=== PATIENT | female | born 1940 | race Caucasian/White ===

== ENCOUNTER 2016-11-21 15:36 | Emergency (ER) | payer MEDICARE, OTHER ==
[2016-11-21 15:51] VITALS: O2SAT 97
--- NOTE | 2016-11-21 16:48 | ERPHSYRPT ---
- History of Present Illness Time Seen by Provider: 11/21/16 15:50 Source: patient Exam Limitations: clinical condition Patient Subjective Stated Complaint: fall Triage Nursing Assessment: fell yesterday and landed on lt wrist. significant swelling to lt wrist. good sensation. radial pulse present. no other injury. Physician History: PATIENT FELL YESTERDAY SUSTAINED LEFT WRIST INJURY, HAS PAIN WITH SWELLING. DENIES ASSOCIATED HEAD, NECK AND BACK INJURY. Occurred: yesterday Method of Injury: fell Quality: constant Severity of Pain-Max: mild Severity of Pain-Current: mild Extremities Pain Location: wrist: left Modifying Factors: Improves With: movement Associated Symptoms: none Allergies/Adverse Reactions: nalidixic acid [From NegGram] Allergy (Verified 11/21/16 15:51) nitrofurantoin macrocrystalline [From Macrodantin] Allergy (Verified 11/21/16 15 :51) oxytetracycline [From Terramycin] Allergy (Verified 11/21/16 15:51) oxytetracycline HCl [From Terramycin] Allergy (Verified 11/21/16 15:51) codeine [Codeine] Adverse Reaction (Mild, Verified 11/21/16 15:51) Pt states it makes her "climb the dasilva" Home Medications: Furosemide 40 mg [Lasix 40 MG] 20 mg PO DAILY 08/11/12 [History] Acetaminophen [Tylenol Extra Strength] 2 tab PO Q4-6HPRN PRN 01/05/13 [History] [place]-3 Acid Ethyl Esters [Lovaza] 2 cap PO BID 01/05/13 [History] Bupropion HCl Xl 150 mg [Wellbutrin XL 150 MG] 300 mg PO DAILY 01/08/13 [ History] Digoxin 0.125 mg Tablet [Lanoxin 0.125MG TABLET] 0.125 mg PO UD 01/08/13 [ History] Gabapentin 300 mg [Neurontin 300 mg] 300 mg PO BID 01/08/13 [History] Levothyroxine Sodium 125 Mcg [Synthroid 125 Mcg] 88 mcg PO DAILY 01/08/13 [ History] Lorazepam 1 mg [Ativan 1 MG] 1 mg PO HS 01/08/13 [History] Calcium Carbonate/Vitamin D3 [Os-John 500-Vit D3 200 Caplet] 1 each PO DAILY [History] Metoprolol Tartrate 25 mg [Lopressor 25MG Tab] 25 mg PO BID 10/01/14 [ History] Potassium Chloride 10 Meq Tab* [Klor Con 10 MEQ] 10 meq PO BID 10/01/14 [ History] Spironolactone [Aldactone] 25 mg PO BID 10/01/14 [History] Warfarin Sodium 5 mg [Coumadin 5 MG] 6 mg PO HS 11/21/16 [History] Hx Tetanus, Diphtheria Vaccination/Date Given: Yes Hx Influenza Vaccination/Date Given: Yes Hx Pneumococcal Vaccination/Date Given: Yes Immunizations Up to Date: Yes - Review of Systems Constitutional: No Fever, No Chills Musculoskeletal: Injury, Joint Pain, Joint Swelling - Past Medical History Pertinent Past Medical History: Yes Neurological History: Stroke ENT History: Cataracts Cardiac History: Arrhythmia, Deep Vein Thrombosis, Hypertension, Other Respiratory History: No Pertinent History Endocrine Medical History: Diabetes Type II, Hypothyroidism Musculoskeletal History: No Pertinent History GI Medical History: No Pertinent History History: No Pertinent History, Renal Disease Psycho-Social History: Anxiety Female Reproductive Disorders: No Pertinent History - Past Surgical History Past Surgical History: Yes Neuro Surgical History: No Pertinent History Cardiac: Pacemaker, Valve Replacement Respiratory: No Pertinent History Gastrointestinal: Appendectomy, Cholecystectomy Genitourinary: No Pertinent History Musculoskeletal: No Pertinent History Female Surgical History: Hysterectomy Other Surgical History: THYROID REMOVED, RIGHT CARPAL TUNNEL. cyst ovary - Social History Smoking Status: Never smoker Exposure to second hand smoke: No Alcohol Use: None Drug Use: none Patient Lives Alone: No Significant Family History: no pertinent family hx - Female History Hx Now: No - Nursing Vital Signs Nursing Vital Signs: Initial Vital Signs Temperature 97.4 F Temperature Source Oral Pulse Rate 74 Respiratory Rate 18 Blood Pressure [Right Arm] 127/60 Pain Intensity 6 - Physical Exam General Appearance: alert Eyes, Ears, Nose, Throat Exam: moist mucous membranes Neck Exam: non-tender, supple Cardiovascular/Respiratory Exam: chest non-tender, normal breath sounds, regular rate/rhythm, no respiratory distress Abdominal Exam: non-tender, No guarding Back Exam: normal inspection, No vertebral tenderness Wrist Exam: limited ROM (GOOD CAPILLARY REFILL ALL DIGITS), pain (MINIMAL SNUFF BOX TENDERNESS, NO CREPITUS), soft tissue tenderness, swelling Neuro/Tendon Exam: normal sensation, normal motor functions Mental Status Exam: alert, oriented x 3, cooperative Skin Exam: normal color, warm, dry SpO2 Interpretation: normal SpO2: 97 Oxygen Delivery: Room Air - Radiology Exams Left Wrist X-ray Interpretation: Interpreted by me (TINY AVULSION FRACTURE LEFT ULNAR STYLOID) Ordered Tests: Active Orders 24 hr Category Date Time Status Sling Application STAT Care 11/21/16 16:38 Active Splint STAT Care 11/21/16 16:38 Active WRIST (MIN 3 VIEWS) Stat Exams 11/21/16 16:05 Taken - Progress Progress Note: 11/21/16 16:46 ORTHOGLASS SPLINT APPLIED TO LEFT WRIST, WITH ARM SLING Counseled pt/family regarding: diagnosis, need for follow-up, rad results - Departure Time of Disposition: 17:00 Departure Disposition: Home Clinical Impression: AVULSION LEFT WRIST ULNAR STYLOID Condition: Stable Critical Care Time: No Additional Instructions: MAINTAIN VELCRO SPLINT WITH ARM SLING. APPLY ICE OVER WRIST SWELLING EVERY 4 HOURS, 30 MINUTES FOR 48 HOURS. [place] 5/325 EVERY 4 HOURS FOR PAIN. FOLLOWUP WITH DR PALENCIA. Prescriptions: Hydrocodone/Acetaminophen [[place] 5-325 Tablet] 1 each PO Q4H PRN PRN #15 tablet PRN Reason: Pain
[2016-11-21 16:57] VITALS: BP 107/54; PULSE 60
[2016-11-21] MEDS ORDERED: NORCO 5/325 MG ONE (16:59)
--- NOTE | 2016-11-21 21:01 | XRAY ---
Indication: Pain and swelling following fall. Comparison: None 3 views of the left wrist demonstrates minimally displaced tiny cortical fracture fragment posteriorly only seen on the lateral view with soft tissue swelling either from the distal radius or proximal carpal row. CT may yield further information. Mild degenerative changes of the first metacarpal multangular articulation and scattered vascular calcifications.
== END 2016-11-21 17:05 | disposition home or self-care (01) ==
LOC: ED 15:36
PROC: 2W3DX1Z Immobilization of Left Lower Arm using Splint (ICD-10-PCS; principal; 2016-11-21)
DX: S63.075A Dislocation of distal end of left ulna, initial encounter (principal); W19.XXXA Unspecified fall, initial encounter; Z79.899 Other long term (current) drug therapy; Z79.01 Long term (current) use of anticoagulants
CPT/HCPCS: 29126 ×2; 99283; 73110; A9270

== ENCOUNTER 2018-01-07 21:34 | Observation (INO) | payer MEDICARE, OTHER ==
[2018-01-07] MEDS ORDERED: Nitrostat 0.4 MG (ED) SL ONE ×4 (21:55→22:48)
[2018-01-07] MEDS ORDERED: Sodium Chloride 0.9% 1000 ML 1,000 ML IV SCH (22:00)
[2018-01-07 22:03] LABS: BASOPHIL % 0.4 % (0.0-0.4); Basophil (Absolute #) 0.03 (0-0.4); Eosinophil (Absolute #) 0.33 (0-0.5); Granulocyte Absolute (ANC) 4.27 (1.4-6.9); Granulocytes % 52.2 % (36.0-66.0); Hematocrit 34.1 % (35-47); Hemoglobin 11.3 gm/dl (12.0-16.0); Lymphocyte (Absolute #) 2.77 (1.0-4.6); Lymphocytes % 33.9 % (24.0-44.0); Mean Cell Volume 91.4 fl (78-100); Mean Corpuscular Hgb Concent. 33.1 g/dl (32-36); Mean Platelet Volume 10.8 fl (6-9.5); Monocyte (Absolute #) 0.78 (0.0-1.3); Monocytes % 9.5 % (0.0-12.0); Platelet Count 224 K/mm3 (150-450); Red Blood Count 3.73 M/mm3 (4.1-5.4); Red Cell Distribution Width 14.5 % (11.5-14.0); White Blood Count 8.2 K/mm3 (4.0-10.5)
--- NOTE | 2018-01-07 22:04 | ERPHSYRPT ---
- History of Present Illness Time Seen by Provider: 01/07/18 21:47 Historian: patient Exam Limitations: clinical condition Patient Subjective Stated Complaint: chest pain on the right side of chest Triage Nursing Assessment: Pt A&O x3, vitals wnl, complains of pain on the right side of chest that came on suddenly while watching television, no edema, muscle strength normal, S1-S2 sounds heard, lungs clear, hx of mitral and atrial valve replacement, pacemaker, doesn't appear to be in any distress Physician History: PATIENT WITH A HISTORY OF CORONARY ARTERY DISEASE, CVA'S X4, ATRIAL FIBRILLATION WITH PACEMAKER INSERTION, COMPLAINS OF ACUTE ONSET OF CHEST PAIN RIGHT SIDED SUBSTERNAL PRESSSURE DISCOMFORT SINCE 7 PM TONIGHT, PAIN SCALE 7/10 , DENIES RADIATON OF PAIN TO BACK, NECK JAW OR ARMS. Timing/Duration: today, hour(s) Activities at Onset: none Quality: pressure Location: substernal Chest Pain Radiation: no radiation Severity of Pain-Max: moderate Severity of Pain-Current: moderate Modifying Factors: Improves With: oxygen Associated Symptoms: dizziness Prior Chest Pain/Cardiac Workup: angina Nitro Today/Relief: no nitro taken today Aspirin Treatment Today: no aspirin today Allergies/Adverse Reactions: nalidixic acid [From NegGram] Allergy (Verified 07/16/17 15:22) nitrofurantoin macrocrystalline [From Macrodantin] Allergy (Verified 07/16/17 15 :22) oxytetracycline [From Terramycin] Allergy (Verified 07/16/17 15:22) oxytetracycline HCl [From Terramycin] Allergy (Verified 01/07/18 21:48) codeine [Codeine] Adverse Reaction (Mild, Verified 07/16/17 15:22) Pt states it makes her "climb the dasilva" Home Medications: Furosemide 40 mg [Lasix 40 MG] 40 mg PO DAILY 08/11/12 [History] [place]-3 Acid Ethyl Esters [Lovaza] 1 cap PO BID 01/05/13 [History] Bupropion HCl Xl 150 mg [Wellbutrin XL 150 MG] 150 mg PO DAILY 01/08/13 [ History] Digoxin 0.125 mg Tablet [Lanoxin 0.125MG TABLET] 0.125 mg PO UD 01/08/13 [ History] Gabapentin 300 mg [Neurontin 300 mg] 400 mg PO BID 01/08/13 [History] Levothyroxine Sodium 125 Mcg [Synthroid 125 Mcg] 88 mcg PO DAILY 01/08/13 [ History] Lorazepam 1 mg [Ativan 1 MG] 0.5 mg PO HS 01/08/13 [History] Metoprolol Tartrate 25 mg [Lopressor 25MG Tab] 25 mg PO BID 10/01/14 [ History] Potassium Chloride 10 Meq Tab* [Klor Con 10 MEQ] 10 meq PO BID 10/01/14 [ History] Spironolactone [Aldactone] 25 mg PO BID 10/01/14 [History] Warfarin Sodium 5 mg [Coumadin 5 MG] 6 mg PO HS 11/21/16 [History] Atorvastatin Calcium 20 mg PO DAILY 01/07/18 [History] Insulin Aspart [Novolog Flexpen] 12 units SQ TID 01/07/18 [History] Insulin Glargine,Hum.rec.anlog [[place] Solostar] 28 units SQ HS 01/07/18 [ History] Lisinopril [Lisinopril] 10 mg PO BID 01/07/18 [History] Polyethylene Glycol 3350 17 gm [Miralax Powder 17GM PACKET] 17 gm PO DAILY [History] Hx Tetanus, Diphtheria Vaccination/Date Given: Yes (unknown) Hx Influenza Vaccination/Date Given: Yes Hx Pneumococcal Vaccination/Date Given: Yes - Review of Systems Constitutional: No Fever, No Chills Eyes: No Symptoms Ears, Nose, & Throat: No Symptoms Respiratory: Dyspnea on Exertion (VACA), No Cough, No Dyspnea Cardiac: Chest Pain, No Edema, No Syncope Abdominal/Gastrointestinal: No Symptoms, No Abdominal Pain, No Nausea, No Vomiting, No Diarrhea Genitourinary Symptoms: No Symptoms, No Dysuria Musculoskeletal: No Back Pain, No Neck Pain Skin: No Rash Neurological: Vertigo, No Dizziness, No Focal Weakness, No Sensory Changes Psychological: No Symptoms Endocrine: No Symptoms All Other Systems: Reviewed and Negative - Past Medical History Pertinent Past Medical History: Yes Neurological History: Stroke ENT History: Cataracts Cardiac History: Arrhythmia, Deep Vein Thrombosis, Hypertension, Other Respiratory History: No Pertinent History Endocrine Medical History: Diabetes Type II, Hypothyroidism Musculoskeletal History: No Pertinent History GI Medical History: No Pertinent History History: No Pertinent History, Renal Disease Psycho-Social History: Anxiety Female Reproductive Disorders: No Pertinent History - Past Surgical History Past Surgical History: Yes Neuro Surgical History: No Pertinent History Cardiac: Pacemaker, Valve Replacement Respiratory: No Pertinent History Gastrointestinal: Appendectomy, Cholecystectomy Genitourinary: No Pertinent History Musculoskeletal: No Pertinent History Female Surgical History: Hysterectomy Other Surgical History: THYROID REMOVED, RIGHT CARPAL TUNNEL. cyst ovary - Social History Smoking Status: Never smoker Exposure to second hand smoke: No Alcohol Use: None Drug Use: none Patient Lives Alone: No Significant Family History: no pertinent family hx - Nursing Vital Signs Nursing Vital Signs: Initial Vital Signs Pulse Rate 63 01/07/18 21:37 Blood Pressure 135/65 01/07/18 21:37 O2 Sat by Pulse Oximetry 99 01/07/18 21:37 Pain Scale Pain Intensity 6 - Physical Exam General Appearance: no apparent distress, alert Eye Exam: PERRL/EOMI, eyes nml inspection Ears, Nose, Throat Exam: normal ENT inspection, moist mucous membranes Neck Exam: normal inspection, non-tender, supple, full range of motion Respiratory Exam: normal breath sounds, lungs clear, No respiratory distress Cardiovascular Exam: regular rate/rhythm, normal heart sounds, murmur Gastrointestinal/Abdomen Exam: soft, normal bowel sounds, No tenderness, No mass Back Exam: normal inspection, No CVA tenderness, No vertebral tenderness Extremity Exam: normal inspection, normal range of motion, pedal edema (TRACE PRETIBAL EDEMA) Neurologic Exam: alert, oriented x 3, cooperative, normal mood/affect, sensation nml, No motor deficits Skin Exam: normal color, warm, dry SpO2 Interpretation: normal SpO2: 99 Oxygen Delivery: Room Air - Course EKG Interpreted by Me: RATE (NORMAL SINUS RHYTHM, VENTRICULAR PACED RHYTHM) - Radiology Exams Chest X-ray Interpretation: Interpreted by me (PACEMAKER LEFT HEMITHORAX, NO EVIDENCE OF INFILTRATES OR CONGESTIVE HEART FAILURE) Ordered Tests: Active Orders 24 hr Category Date Time Status Bedrest with BRP/BSC ROUTINE Activity 01/07/18 23:09 Active Up With Assistance ROUTINE Activity 01/07/18 23:10 Active Accucheck ACHS Care 01/07/18 23:09 Active Call Admit Doctor for Orders ROUTINE Care 01/07/18 23:09 Active Code Status Order ROUTINE Care 01/07/18 23:09 Active EKG-ER Only STAT Care 01/07/18 22:05 Active IV Care Q6H Care 01/07/18 23:09 Active Implement Chest Pain Pathway ROUTINE Care 01/07/18 23:09 Active Oxygen-ED Only NASAL CANNULA 2 lpm Care 01/07/18 21:[address] in Observation ROUTINE Care 01/07/18 23:09 Active Jesus Evans, Apply ROUTINE Care 01/07/18 23:09 Active Telemetry ROUTINE Care 01/07/18 23:09 Active Vital Signs Q4H Care 01/07/18 23:09 Active Weight,Daily 0600 Care 01/07/18 23:09 Active 1800 Calorie ADA Diet 01/07/18 Breakfast Active CHEST 1 VIEW (PORTABLE) Stat Exams 01/07/18 21:55 Taken CBC W DIFF Stat Lab 01/07/18 21:55 Completed CMP Stat Lab 01/07/18 21:55 Completed LIPID PROFILE AM.LAB Lab 01/08/18 04:00 Ordered MAGNESIUM Stat Lab 01/07/18 21:55 Completed NT PRO BNP Stat Lab 01/07/18 21:55 Completed PROTIME WITH INR Stat Lab 01/07/18 21:55 Completed TROPONIN Q3H Lab 01/07/18 21:55 Completed TROPONIN Q3H Lab 01/08/18 01:00 Ordered TROPONIN Q3H Lab 01/08/18 04:00 Ordered TROPONIN Q3H Lab 01/08/18 07:00 Ordered TROPONIN Q3H Lab 01/08/18 10:00 Ordered EKG Q8HX2,QAMX3,PRN RT 01/07/18 23:09 Active Pulse Oximetry Q4H RT 01/07/18 23:09 Active Transfer Order Routine Transfer 01/07/18 Ordered Medication Summary Generic Name Dose Route Start Last Admin Trade Name Freq PRN Reason Stop Dose Admin Acetaminophen 650 mg 01/07/18 23:09 Tylenol 325 Mg PO 02/06/18 23:08 Q4H PRN PRN PAIN AND/OR FEVER Al Hydrox/Mg Hydrox/Simethicone 30 ml 01/07/18 23:09 Maalox Es 30 Ml Unit Dose PO 02/06/18 23:08 Q4H PRN PRN INDIGESTION Aspirin 325 mg 01/08/18 10:00 Ecotrin 325 Mg PO 02/07/18 09:59 DAILY [facility] Bupropion HCl 150 mg 01/08/18 10:00 Wellbutrin Xl 150 Mg PO 02/07/18 09:59 DAILY [facility] Digoxin 0.125 mg 01/08/18 10:00 Lanoxin 0.125mg Tablet PO 02/07/18 09:59 DAILY [facility] Furosemide 40 mg 01/08/18 10:00 Lasix 40 Mg PO 02/07/18 09:59 DAILY [facility] Gabapentin 400 mg 01/08/18 10:00 Neurontin 400 Mg PO 02/07/18 09:59 BID [facility] Sodium Chloride 1,000 mls @ 20 mls/hr 01/07/18 22:00 01/07/18 22:09 Sodium Chloride 0.9% 1000 Ml IV 02/06/18 21:59 20 mls/hr .Q24H [facility]PHEN Administration Sodium Chloride 500 mls @ 20 mls/hr 01/07/18 23:15 Sodium Chloride 0.9% 500 Ml IV 02/06/18 23:14 .Q24H [facility] Levothyroxine Sodium 88 mcg 01/08/18 10:00 Synthroid 88 Mcg PO 02/07/18 09:59 QAM [facility] Lisinopril 10 mg 01/08/18 10:00 Zestril 10 Mg PO 02/07/18 09:59 DAILY [facility] Magnesium Hydroxide 30 - 60 ml 01/07/18 23:09 Milk Of Magnesia 30 Ml PO 02/06/18 23:08 QDP PRN CONSTIPATION Metoprolol Tartrate 25 mg 01/08/18 10:00 Lopressor 25mg Tab PO 02/07/18 09:59 BID [facility] Ondansetron HCl 4 mg 01/07/18 23:09 Zofran 4 Mg/2 Ml Vial IV 02/06/18 23:08 Q4H PRN PRN NAUSEA/VOMITING Senna/Docusate Sodium 2 udtab 01/07/18 23:09 Senokot-S Tablet PO 02/06/18 23:08 BID PRN PRN CONSTIPATION Spironolactone 25 mg 01/08/18 10:00 Aldactone 25 Mg PO 02/07/18 09:59 BID [facility] Warfarin Sodium 5 mg 01/08/18 18:00 Coumadin 5 Mg PO 02/07/18 17:59 DAILY@1800 [facility] Discontinued Medications Generic Name Dose Route Start Last Admin Trade Name Israelq PRN Reason Stop Dose Admin Nitroglycerin 0.4 mg 01/07/18 21:55 01/07/18 22:08 Nitrostat 0.4 Mg (Ed) SL 01/07/18 21:56 0.4 mg STAT ONE Administration Nitroglycerin Confirm 01/07/18 22:06 Nitrostat 0.4 Mg (Ed) Administered 01/07/18 22:07 Dose 0.4 mg SL .STK-MED ONE Nitroglycerin 0.4 mg 01/07/18 22:25 01/07/18 22:47 Nitrostat 0.4 Mg (Ed) SL 01/07/18 22:26 0.4 mg STAT ONE Administration Nitroglycerin 1 gm 01/07/18 22:50 01/07/18 23:10 Nitro-Bid 2% Ud Packets TOP 01/07/18 22:51 1 gm STAT ONE Administration Nitroglycerin Confirm 01/07/18 22:48 Nitrostat 0.4 Mg (Ed) Administered 01/07/18 22:49 Dose 0.4 mg SL .STK-MED ONE Nitroglycerin Confirm 01/07/18 23:06 Nitro-Bid 2% Ud Packets Administered 01/07/18 23:07 Dose 1 gm .ROUTE .STK-MED ONE Lab/Rad Data: Laboratory Result Diagrams 01/07/18 21:55 01/07/18 21:55 Laboratory Results 01/07/18 01/07/18 01/07/18 Range/Units Unknown 21:55 21:55 WBC (4.0-10.5) K/mm3 RBC (4.1-5.4) M/mm3 Hgb (12.0-16.0) gm/dl Hct (35-47) % MCV (78-100) fl MCH (26-32) pg MCHC (32-36) g/dl RDW (11.5-14.0) % Plt Count (150-450) K/mm3 MPV (6-9.5) fl Gran % (36.0-66.0) % Eos # (Auto) (0-0.5) Absolute Lymphs (auto) (1.0-4.6) Absolute Monos (auto) (0.0-1.3) Lymphocytes % (24.0-44.0) % Monocytes % (0.0-12.0) % Eosinophils % (0.00-5.0) % Basophils % (0.0-0.4) % Absolute Granulocytes (1.4-6.9) Basophils # (0-0.4) PT (9.95-12.35) SECONDS INR (0.8-3.0) Sodium (137-145) mmol/L Potassium (3.5-5.1) mmol/L Chloride (98-107) mmol/L Carbon Dioxide (22-30) mmol/L Anion Gap (5-15) MEQ/L BUN (7-17) mg/dL Creatinine (0.52-1.04) mg/dL Estimated GFR ML/MIN Glucose (74-106) mg/dL Calcium (8.4-10.2) mg/dL Magnesium 1.9 (1.6-2.3) mg/dL Total Bilirubin (0.2-1.3) mg/dL AST (14-36) U/L ALT (0-35) U/L Alkaline Phosphatase (38-126) U/L Troponin I < 0.012 (0.000-0.034) ng/mL NT-Pro-B Natriuret Pep (0-1800) pg/mL Serum Total Protein (6.3-8.2) g/dL Albumin (3.5-5.0) g/dL Digoxin 0.9 (0.8-1.9) ng/mL 01/07/18 01/07/18 01/07/18 Range/Units 21:55 21:55 21:55 WBC 8.2 (4.0-10.5) K/mm3 RBC 3.73 L (4.1-5.4) M/mm3 Hgb 11.3 L (12.0-16.0) gm/dl Hct 34.1 L (35-47) % MCV 91.4 (78-100) fl MCH 30.2 (26-32) pg MCHC 33.1 (32-36) g/dl RDW 14.5 H (11.5-14.0) % Plt Count 224 (150-450) K/mm3 MPV 10.8 H (6-9.5) fl Gran % 52.2 (36.0-66.0) % Eos # (Auto) 0.33 (0-0.5) Absolute Lymphs (auto) 2.77 (1.0-4.6) Absolute Monos (auto) 0.78 (0.0-1.3) Lymphocytes % 33.9 (24.0-44.0) % Monocytes % 9.5 (0.0-12.0) % Eosinophils % 4.0 (0.00-5.0) % Basophils % 0.4 (0.0-0.4) % Absolute Granulocytes 4.27 (1.4-6.9) Basophils # 0.03 (0-0.4) PT 41.6 H (9.95-12.35) SECONDS INR 3.69 H (0.8-3.0) Sodium 140 (137-145) mmol/L Potassium 4.7 (3.5-5.1) mmol/L Chloride 105 (98-107) mmol/L Carbon Dioxide 25 (22-30) mmol/L Anion Gap 15.0 (5-15) MEQ/L BUN 35 H (7-17) mg/dL Creatinine 1.68 H (0.52-1.04) mg/dL Estimated GFR 31.3 ML/MIN Glucose 119 H (74-106) mg/dL Calcium 10.2 (8.4-10.2) mg/dL Magnesium (1.6-2.3) mg/dL Total Bilirubin 0.40 (0.2-1.3) mg/dL AST 22 (14-36) U/L ALT 20 (0-35) U/L Alkaline Phosphatase 107 (38-126) U/L Troponin I (0.000-0.034) ng/mL NT-Pro-B Natriuret Pep 1140 (0-1800) pg/mL Serum Total Protein 7.3 (6.3-8.2) g/dL Albumin 4.4 (3.5-5.0) g/dL Digoxin (0.8-1.9) ng/mL - Progress Progress: improved Progress Note: 01/07/18 22:04 ADMINISTERED IV NORMAL SALINE 20ML/HR, NITRO 0.4MG SL X 2 , APPLICATION NITRO PASTE 1" ANTERIOR CHEST WALL 01/07/18 22:48 CHEST PAIN IMPROVED TO A 10/2201/07/18 23:07 Discussed with : Kaushal (DISCUSSED WITH DR Jam ALBRECHT AT 2307 FOR OBSERVATION) - Departure Time of Disposition: 23:30 Departure Disposition: Observation Clinical Impression: ACUTE CHEST PAIN Condition: Stable Critical Care Time: No Referrals: MICHELLE BOWMAN [Primary Care Provider] -
[2018-01-07] MEDS ORDERED: Sodium Chloride 0.9% 1000 ML 1,000 ML ONE (22:06)
[2018-01-07 22:26] LABS: INR 3.69 (0.8-3.0)
[2018-01-07 22:37] LABS: ALBUMIN 4.4 g/dL (3.5-5.0); BILIRUBIN,TOTAL 0.4 mg/dL (0.2-1.3); Calcium 10.2 mg/dL (8.4-10.2); Creatinine 1 1.68 mg/dL (0.52-1.04); Potassium 4.7 mmol/L (3.5-5.1); Total Protein 7.3 g/dL (6.3-8.2)
[2018-01-07 22:43] LABS: Mean Corpuscular Hemoglobin 30.2 pg (26-32)
[2018-01-07] MEDS ORDERED: NITRO-BID 2% UD PACKETS TOP ONE (22:50)
[2018-01-07] MEDS ORDERED: NITRO-BID 2% UD PACKETS ONE (23:06)
[2018-01-07] MEDS ORDERED: TYLENOL 325 MG PO PRN (23:09)
[2018-01-07] MEDS ORDERED: MAALOX ES 30 ML UNIT DOSE PO PRN (23:09)
[2018-01-07] MEDS ORDERED: MILK OF MAGNESIA 30 ML PO PRN (23:09)
[2018-01-07] MEDS ORDERED: Zofran 4 MG/2 ML VIAL IV PRN (23:09)
[2018-01-07] MEDS ORDERED: Senokot-S Tablet PO PRN (23:09)
[2018-01-07] MEDS ORDERED: Sodium Chloride 0.9% 500 ML 500 ML IV SCH (23:15)
[2018-01-08] MEDS ORDERED: NovoLIN R SQ PRN
[2018-01-08 07:34] VITALS: O2SAT 96
--- NOTE | 2018-01-08 08:29 | PCM.HP ---
History of Present Illness - Chief Complaint Chief Complaint: Acute Chest Pain Date: 01/08/18 History of Present Illness: is a 77 year old female with history of mechanical valve replacement , dvt, and diabetes and hypertension who was sitting at home and suddenly began having chest pain in substernal area sharp in nature around 7pm last night it did not improve so she presented to the ED where it resolved last night. Sh ewas placed in observation for chest pain rule out. she denies any shortness of breath or palpiations no fever or chills and no heart burn or indigestion. - Review of Systems Constitutional: No Fever, No Chills Eyes: No Symptoms Ears, Nose, & Throat: No Symptoms Respiratory: No Cough, No Short Of Breath Cardiac: Chest Pain, No Edema, No Syncope Abdominal/Gastrointestinal: No Abdominal Pain, No Nausea, No Vomiting, No Diarrhea Genitourinary Symptoms: No Dysuria Musculoskeletal: No Back Pain, No Neck Pain Skin: No Rash Neurological: No Dizziness, No Focal Weakness, No Sensory Changes Psychological: No Symptoms Endocrine: No Symptoms Hematologic/Lymphatic: No Symptoms Immunological/Allergic: No Symptoms Medications & Allergies Home Medications: Home Medication List Furosemide 40 mg [Lasix 40 MG] 40 mg PO DAILY 08/11/12 [History Confirmed 01/07/18] [place]-3 Acid Ethyl Esters [Lovaza] 1 cap PO BID 01/05/13 [History Confirmed ] Bupropion HCl Xl 150 mg [Wellbutrin XL 150 MG] 150 mg PO DAILY 01/08/13 [ History Confirmed 01/07/18] Digoxin 0.125 mg Tablet [Lanoxin 0.125MG TABLET] 0.125 mg PO UD 01/08/13 [ History Confirmed 01/08/18] Gabapentin 300 mg [Neurontin 300 mg] 400 mg PO BID 01/08/13 [History Confirmed 01/07/18] Levothyroxine Sodium 125 Mcg [Synthroid 125 Mcg] 88 mcg PO DAILY 01/08/13 [ History Confirmed 01/07/18] Lorazepam 1 mg [Ativan 1 MG] 0.5 mg PO HS 01/08/13 [History Confirmed ] Metoprolol Tartrate 25 mg [Lopressor 25MG Tab] 25 mg PO BID 10/01/14 [ History Confirmed 01/07/18] Potassium Chloride 10 Meq Tab* [Klor Con 10 MEQ] 10 meq PO BID 10/01/14 [ History Confirmed 01/07/18] Spironolactone [Aldactone] 25 mg PO BID 10/01/14 [History Confirmed 01/07/18] Warfarin Sodium 5 mg [Coumadin 5 MG] 6 mg PO HS 11/21/16 [History Confirmed 01/07/18] Atorvastatin Calcium 20 mg PO DAILY 01/07/18 [History Confirmed 01/07/18] Insulin Aspart [Novolog Flexpen] 12 units SQ TIDWM 01/07/18 [History Confirmed 01/08/18] Insulin Glargine,Hum.rec.anlog [Toujeo Solostar] 28 units SQ HS 01/07/18 [ History Confirmed 01/07/18] Lisinopril [Lisinopril] 10 mg PO BID 01/07/18 [History Confirmed 01/07/18] Polyethylene Glycol 3350 17 gm [Miralax Powder 17GM PACKET] 17 gm PO DAILY [History Confirmed 01/07/18] Allergies/Adverse Reactions: Allergies Allergy/AdvReac Type Severity Reaction Status Date / Time nalidixic acid [From NegGram] Allergy Verified 07/16/17 15:22 nitrofurantoin Allergy Verified 07/16/17 15:22 macrocrystalline [From Macrodantin] oxytetracycline Allergy Verified 07/16/17 15:22 [From Terramycin] oxytetracycline HCl Allergy Verified 01/07/18 21:48 [From Terramycin] codeine [Codeine] AdvReac Mild Verified 07/16/17 15:22 - Past Medical History Past Medical History: Yes Neurological History: Stroke ENT History: Cataracts Cardiac History: Arrhythmia, Deep Vein Thrombosis, Hypertension, Other Respiratory History: No Pertinent History Endocrine Medical History: Diabetes Type II, Hypothyroidism Musculoskelatal History: No Pertinent History GI Medical History: No Pertinent History History: No Pertinent History Pyscho-Social History: Anxiety Reproductive Disorders: No Pertinent History - Female History Are you now?: No - Past Surgical History Past Surgical History: Yes Neuro Surgical History: No Pertinent History Cardiac History: Pacemaker, Valve Replacement Respiratory Surgery: No Pertinent History GI Surgical History: Appendectomy, Cholecystectomy Genitourinary Surgical Hx: No Pertinent History Musculskeletal Surgical Hx: No Pertinent History Female Surgical History: Hysterectomy Other Surgical History: THYROID REMOVED, LEFT CARPAL TUNNEL. cyst ovary. Bladder Surgery 1974 - Social History Smoking Status: Never smoker Exposure to second hand smoke: No Alcohol: None Drug Use: none Significant Family History: no pertinent family hx - Physical Exam Vital Signs: Vital Signs - 24 hr Temp Pulse Resp BP Pulse Ox 01/08/18 07:32 97.8 F 60 18 111/58 96 01/08/18 07:23 64 16 98 01/08/18 04:00 97.4 F 60 16 118/57 98 01/08/18 00:03 97.7 F 60 18 109/55 100 01/07/18 23:35 97.7 F 60 18 109/55 100 01/07/18 23:26 99 01/07/18 22:12 60 20 123/60 98 01/07/18 21:37 63 135/65 99 Oxygen-Last 24 hours O2 Percentage 2 Liters = 28% O2 Percentage 2 Liters = 28% Oxygen Flowrate (L/min)-RT 2 General Appearance: no apparent distress, alert Neurologic Exam: alert, oriented x 3, cooperative, normal mood/affect, nml cerebellar function, nml station & gait, sensation nml, No motor deficits Eye Exam: PERRL/EOMI, eyes nml inspection Ears, Nose, Throat Exam: normal ENT inspection, TMs normal, pharynx normal, moist mucous membranes Neck Exam: normal inspection, non-tender, supple, full range of motion Respiratory Exam: normal breath sounds, lungs clear, No respiratory distress Cardiovascular Exam: regular rate/rhythm, normal peripheral pulses, other ( mechanical click) Gastrointestinal/Abdomen Exam: soft, normal bowel sounds, No tenderness, No mass Back Exam: normal inspection, normal range of motion, No CVA tenderness, No vertebral tenderness Extremity Exam: normal inspection, normal range of motion, pelvis stable Skin Exam: normal color, warm, dry, No rash Lymphatic Exam: No adenopathy Results - Labs Lab/Micro Results: Accuchecks Date 01/08/18 Time 07:16 Accucheck Value: 126 Lab Results-Last 24 Hours 01/07/18 01/08/18 01/08/18 Range/Units Unknown 01:30 04:00 Troponin I 0.013 < 0.012 (0.000-0.034) ng/mL Triglycerides (30-150) mg/dL Cholesterol (50-200) mg/dL LDL Cholesterol (30-100) mg/dL HDL Cholesterol (40-60) mg/dL Heart Disease Risk Ratio Digoxin 0.9 (0.8-1.9) ng/mL 01/08/18 01/08/18 Range/Units 04:00 07:05 Troponin I 0.017 (0.000-0.034) ng/mL Triglycerides 223 H (30-150) mg/dL Cholesterol 131 (50-200) mg/dL LDL Cholesterol 60 (30-100) mg/dL HDL Cholesterol 26 L (40-60) mg/dL Heart Disease Risk Ratio 5.0 Digoxin (0.8-1.9) ng/mL Accuchecks Date 01/08/18 Time 07:16 Accucheck Value: 126 - Other Procedures and Tests Respiratory Therapy 01/08/18 05:30 EKG ROUTINE 01/08/18 07:22 Oxygen NASAL CANNULA 2 lpm 01/09/18 05:00 EKG DAILY 01/10/18 05:00 EKG DAILY 01/11/18 05:00 EKG DAILY Assessment/Plan (1) Chest pain, rule out acute myocardial infarction Current Visit: Yes Status: Acute Assessment & Plan: seireal troponin negative and she is chest pain free she will keep f/u with her caridiology Dr. Stewart Code(s): R07.9 - CHEST PAIN, UNSPECIFIED (2) Mechanical heart valve present Current Visit: Yes Status: Acute Assessment & Plan: inr goal 2.5 to 3.5 just a little high today continue outpatient monitoring with Dr. Stewart with f/u inr this week Code(s): Z95.2 - PRESENCE OF PROSTHETIC HEART VALVE (3) Type 2 diabetes mellitus Current Visit: Yes Status: Chronic (4) CKD stage 3 due to type 2 diabetes mellitus Current Visit: Yes Status: Chronic Code(s): E11.22 - TYPE 2 DIABETES MELLITUS W DIABETIC CHRONIC KIDNEY DISEASE; N18.3 - CHRONIC KIDNEY DISEASE, STAGE 3 (MODERATE)
--- NOTE | 2018-01-08 08:31 | PCM.DCORD ---
- Discharge Discharge Date: 01/08/18 Disposition: Home, Self-Care Condition: Stable Prescriptions: Continue Furosemide 40 mg [Lasix 40 MG] 40 mg PO DAILY [place]-3 Acid Ethyl Esters [Lovaza] 1 cap PO BID Lorazepam 1 mg [Ativan 1 MG] 0.5 mg PO HS Levothyroxine Sodium 125 Mcg [Synthroid 125 Mcg] 88 mcg PO DAILY Gabapentin 300 mg [Neurontin 300 mg] 400 mg PO BID Digoxin 0.125 mg Tablet [Lanoxin 0.125MG TABLET] 0.125 mg PO UD Bupropion HCl Xl 150 mg [Wellbutrin XL 150 MG] 150 mg PO DAILY Spironolactone [Aldactone] 25 mg PO BID Potassium Chloride 10 Meq Tab* [Klor Con 10 MEQ] 10 meq PO BID Metoprolol Tartrate 25 mg [Lopressor 25MG Tab] 25 mg PO BID Warfarin Sodium 5 mg [Coumadin 5 MG] 6 mg PO HS Insulin Glargine,Hum.rec.anlog [Toujeo Solostar] 28 units SQ HS Insulin Aspart [Novolog Flexpen] 12 units SQ TIDWM Polyethylene Glycol 3350 17 gm [Miralax Powder 17GM PACKET] 17 gm PO DAILY Atorvastatin Calcium 20 mg PO DAILY Lisinopril 10 mg PO BID Additional Instructions: go for INR this week with Dr. River's office Follow up with: LENNY RIVER [CONSULTING PHYSICIAN] - 1 Week
[2018-01-08] MEDS ORDERED: OMEGA ACID ETHYL ESTERS PO SCH (10:00)
[2018-01-08] MEDS ORDERED: Neurontin 400 MG PO SCH (10:00)
[2018-01-08] MEDS ORDERED: FISH OIL 1,000 MG CAPSULE PO SCH (10:00)
[2018-01-08] MEDS ORDERED: Lasix 40 MG PO SCH (10:00)
[2018-01-08] MEDS ORDERED: NON-FORMULARY ITEM (Atorvastatin Calcium [Atorvastatin Calcium] 20 MG) PO SCH (10:00)
[2018-01-08] MEDS ORDERED: Miralax Powder 17GM PACKET PO SCH (10:00)
[2018-01-08] MEDS ORDERED: Klor Con 10 MEQ PO SCH (10:00)
[2018-01-08] MEDS ORDERED: Aldactone 25 MG PO SCH (10:00)
[2018-01-08] MEDS ORDERED: ZOCOR 20MG PO SCH (10:00)
[2018-01-08] MEDS ORDERED: Wellbutrin XL 150 MG PO SCH (10:00)
[2018-01-08] MEDS ORDERED: Zestril 10 MG PO SCH ×2 (10:00)
[2018-01-08] MEDS ORDERED: SYNTHROID 88 MCG PO SCH (10:00)
[2018-01-08] MEDS ORDERED: Lanoxin 0.125MG TABLET PO SCH (10:00)
[2018-01-08] MEDS ORDERED: Lopressor 25MG Tab PO SCH (10:00)
[2018-01-08] MEDS ORDERED: Ecotrin 325 MG PO SCH (10:00)
--- NOTE | 2018-01-08 10:40 | XRAY ---
Indication: Dyspnea. Comparison: January 05, 2013. Portable chest remains clear. The heart is not enlarged again with previous cardiac valvular replacement surgery and left-sided single lead pacemaker. Vascularity normal. Bony thorax intact again with mild osteopenia and degenerative changes. Impression: Stable nonacute chest with chronic features.
[2018-01-08] MEDS ORDERED: NovoLOG Insulin SQ SCH (12:00)
[2018-01-08] MEDS ORDERED: INSULIN ASPART 12 UNIT SQ SCH (12:00)
[2018-01-08 12:08] VITALS: BP 97/54; PULSE 61
[2018-01-08] MEDS ORDERED: Coumadin 5 MG PO SCH (18:00)
[2018-01-08] MEDS ORDERED: Coumadin 3 MG PO SCH (18:00)
[2018-01-08] MEDS ORDERED: Lantus Insulin SQ SCH (22:00)
[2018-01-08] MEDS ORDERED: Ativan 0.5 MG PO SCH (22:00)
[2018-01-08] MEDS ORDERED: INSULIN GLARGINE HUM REC ANLOG 28 UNIT SQ SCH (22:00)
[2018-01-09] MEDS ORDERED: Lanoxin 0.125MG TABLET PO SCH (10:00)
== END 2018-01-08 13:10 | disposition home or self-care (01) ==
LOC: ED 21:34 → MED SURG 23:34
PROVIDERS: ADMIT Family Medicine; ATTEND Family Medicine
DX: R07.9 Chest pain, unspecified (principal); I25.10 Atherosclerotic heart disease of native coronary artery without angina pectoris; I48.91 Unspecified atrial fibrillation; Z79.01 Long term (current) use of anticoagulants; E11.9 Type 2 diabetes mellitus without complications; Z79.4 Long term (current) use of insulin; E03.9 Hypothyroidism, unspecified; F41.9 Anxiety disorder, unspecified; Z86.73 Personal history of transient ischemic attack (TIA), and cerebral infarction without residual deficits; Z79.899 Other long term (current) drug therapy; Z95.0 Presence of cardiac pacemaker; Z86.718 Personal history of other venous thrombosis and embolism; I25.2 Old myocardial infarction
CPT/HCPCS: 36415; 71045; 80053; 80061; 80162; 83036; 83721; 83735; 83880; 84484; 85025; 85610; 93005; 93268; 94760; 99284; 99285; A9270-GY; G0378

== ENCOUNTER 2019-01-14 15:39 | Emergency (ER) | payer MEDICARE, OTHER ==
[2019-01-14] MEDS ORDERED: Sodium Chloride 0.9% 1000 ML 1,000 ML IV SCH (16:00)
[2019-01-14 16:07] LABS: BASOPHIL % 0.4 % (0.0-0.4); Basophil (Absolute #) 0.03 (0-0.4); Eosinophil % 4.4 % (0.00-5.0); Eosinophil (Absolute #) 0.34 (0-0.5); Granulocyte Absolute (ANC) 4.23 (1.4-6.9); Granulocytes % 54.6 % (36.0-66.0); Hematocrit 32.8 % (35-47); Hemoglobin 10.8 gm/dl (12.0-16.0); Lymphocyte (Absolute #) 2.49 (1.0-4.6); Lymphocytes % 32.2 % (24.0-44.0); Mean Cell Volume 92.9 fl (78-100); Mean Corpuscular Hemoglobin 30.5 pg (26-32); Mean Corpuscular Hgb Concent. 32.9 g/dl (32-36); Mean Platelet Volume 9.9 fl (6-9.5); Monocyte (Absolute #) 0.65 (0.0-1.3); Monocytes % 8.4 % (0.0-12.0); Platelet Count 228 K/mm3 (150-450); Red Blood Count 3.53 M/mm3 (4.1-5.4); Red Cell Distribution Width 14.3 % (11.5-14.0); White Blood Count 7.7 K/mm3 (4.0-10.5)
--- NOTE | 2019-01-14 16:10 | ERPHSYRPT ---
- History of Present Illness Time Seen by Provider: 01/14/19 16:08 Source: patient, family Exam Limitations: no limitations Patient Subjective Stated Complaint: Pt states "I have been weak and not walking right since this morning. I have had three strokes previously." Triage Nursing Assessment: Pt presented in wheelchair through the front doors. Pt unsteady on her feet, clear full sentences. NIH 0. Pt in no apparent respiratory distress. Physician History: Pt states "I have been weak and not walking right since this morning. I have had three strokes previously." Timing/Duration: today Severity: mild Character of Deficits: other Deficits: off balance Allergies/Adverse Reactions: nalidixic acid [From NegGram] Allergy (Verified 07/16/17 15:22) nitrofurantoin macrocrystalline [From Macrodantin] Allergy (Verified 07/16/17 15 :22) oxytetracycline [From Terramycin] Allergy (Verified 07/16/17 15:22) oxytetracycline HCl [From Terramycin] Allergy (Verified 01/07/18 21:48) codeine [Codeine] Adverse Reaction (Mild, Verified 07/16/17 15:22) Pt states it makes her "climb the dasilva" Home Medications: [place]-3 Acid Ethyl Esters [Lovaza] 1 cap PO BID 01/05/13 [History] Bupropion HCl Xl 150 mg [Wellbutrin XL 150 MG] 150 mg PO DAILY 01/08/13 [ History] Digoxin 0.125 mg Tablet [Lanoxin 0.125MG TABLET] 0.125 mg PO UD 01/08/13 [ History] Gabapentin 300 mg [Neurontin 300 mg] 400 mg PO BID 01/08/13 [History] Levothyroxine Sodium 125 Mcg [Synthroid 125 Mcg] 88 mcg PO DAILY 01/08/13 [ History] Lorazepam 1 mg [Ativan 1 MG] 0.5 mg PO HS 01/08/13 [History] Metoprolol Tartrate 25 mg [Lopressor 25MG Tab] 25 mg PO BID 10/01/14 [ History] Potassium Chloride 10 Meq Tab* [Klor Con 10 MEQ] 10 meq PO BID 10/01/14 [ History] Spironolactone [Aldactone] 25 mg PO BID 10/01/14 [History] Warfarin Sodium 5 mg [Coumadin 5 MG] 6 mg PO HS 11/21/16 [History] Atorvastatin Calcium 20 mg PO DAILY 01/07/18 [History] Insulin Aspart [Novolog Flexpen] 12 units SQ TIDWM 01/07/18 [History] Insulin Glargine,Hum.rec.anlog [Toujeo Solostar] 28 units SQ HS 01/07/18 [ History] Lisinopril 10 mg PO BID 01/07/18 [History] Polyethylene Glycol 3350 17 gm [Miralax Powder 17GM PACKET] 17 gm PO DAILY [History] Ciprofloxacin HCl [Cipro] 250 mg PO BID 01/14/19 [History] Hx Tetanus, Diphtheria Vaccination/Date Given: No Hx Influenza Vaccination/Date Given: Yes Hx Pneumococcal Vaccination/Date Given: Yes Immunizations Up to Date: Yes - Review of Systems Constitutional: No Fever, No Chills Eyes: No Symptoms Ears, Nose, & Throat: No Symptoms Respiratory: No Cough, No Dyspnea Cardiac: No Chest Pain, No Edema, No Syncope Abdominal/Gastrointestinal: No Abdominal Pain, No Nausea, No Vomiting, No Diarrhea Genitourinary Symptoms: No Dysuria Musculoskeletal: No Back Pain, No Neck Pain Skin: No Rash Neurological: Gait Changes, No Dizziness, No Focal Weakness, No Sensory Changes Psychological: No Symptoms Endocrine: No Symptoms All Other Systems: Reviewed and Negative - Past Medical History Pertinent Past Medical History: Yes Neurological History: Stroke ENT History: Cataracts Cardiac History: Arrhythmia, Deep Vein Thrombosis, Hypertension, Other Respiratory History: No Pertinent History Endocrine Medical History: Diabetes Type II, Hypothyroidism Musculoskeletal History: No Pertinent History GI Medical History: No Pertinent History History: No Pertinent History Psycho-Social History: Anxiety Female Reproductive Disorders: No Pertinent History - Past Surgical History Past Surgical History: Yes Neuro Surgical History: No Pertinent History Cardiac: Pacemaker, Valve Replacement Respiratory: No Pertinent History Gastrointestinal: Appendectomy, Cholecystectomy Genitourinary: No Pertinent History Musculoskeletal: No Pertinent History Female Surgical History: Hysterectomy Other Surgical History: THYROID REMOVED, LEFT CARPAL TUNNEL. cyst ovary. Bladder Surgery 1974 - Social History Smoking Status: Never smoker Exposure to second hand smoke: No Alcohol Use: None Drug Use: none Patient Lives Alone: No Significant Family History: no pertinent family hx - Nursing Vital Signs Nursing Vital Signs: Initial Vital Signs Temperature 98.6 F 01/14/19 15:50 Pulse Rate 61 01/14/19 15:50 Respiratory Rate 16 01/14/19 15:50 Blood Pressure 105/53 01/14/19 15:50 O2 Sat by Pulse Oximetry 96 01/14/19 15:50 Pain Scale Pain Intensity 0 - Alejandra Coma Scale Best Eye Response (Alejandra): (4) open spontaneously Best Verbal Response (Alejandra): (5) oriented Best Motor Response (Alejandra): (6) obeys commands Alejandra Total: 15 - Physical Exam General Appearance: no apparent distress, alert Eye Exam: bilateral eye: PERRL, EOMI Ears, Nose, Throat Exam: normal ENT inspection, moist mucous membranes Neck Exam: normal inspection, non-tender, supple Respiratory: normal breath sounds, lungs clear, airway intact, No respiratory distress Cardiovascular: regular rate/rhythm, No edema Gastrointestinal: soft, No tenderness, No distention Back Exam: normal inspection Extremity Exam: normal inspection, No pedal edema Mental Status: alert, 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: tongue midline Coordination/Gait: normal finger to nose, normal gait Skin Exam: normal color, warm, dry, No rash SpO2: 96 - Course Nursing assessment & vital signs reviewed: Yes - Radiology Exams Chest X-ray Interpretation: Reviewed by me, Negative - CT Exams Head CT Interpretation: Tele-radiologist Report Ordered Tests: Active Orders 24 hr Category Date Time Status Child Development Instructor STAT Care 01/14/19 15:52 Active EKG-ER Only STAT Care 01/14/19 15:51 Active CHEST 1 VIEW (PORTABLE) Stat Exams 01/14/19 15:52 Taken HEAD WITHOUT CONTRAST [CT] Routine Exams 01/14/19 Ordered CBC W DIFF Stat Lab 01/14/19 16:00 Completed CMP Stat Lab 01/14/19 16:00 Completed TROPONIN Q3H Lab 01/14/19 16:00 Completed TROPONIN Q3H Lab 01/14/19 19:00 Ordered TROPONIN Q3H Lab 01/14/19 22:00 Ordered TROPONIN Q3H Lab 01/15/19 01:00 Ordered TROPONIN Q3H Lab 01/15/19 04:00 Ordered Medication Summary Generic Name Dose Route Start Last Admin Trade Name Freq PRN Reason Stop Dose Admin Sodium Chloride 1,000 mls @ 50 mls/hr 01/14/19 16:00 01/14/19 16:01 Sodium Chloride 0.9% 1000 Ml IV 02/13/19 15:59 50 mls/hr .Q20H STEPHEN Administration Lab/Rad Data: Laboratory Result Diagrams 01/14/19 16:00 01/14/19 16:00 Laboratory Results 01/14/19 01/14/19 01/14/19 Range/Units 16:00 16:00 16:00 WBC 7.7 (4.0-10.5) K/mm3 RBC 3.53 L (4.1-5.4) M/mm3 Hgb 10.8 L (12.0-16.0) gm/dl Hct 32.8 L (35-47) % MCV 92.9 (78-100) fl MCH 30.5 (26-32) pg MCHC 32.9 (32-36) g/dl RDW 14.3 H (11.5-14.0) % Plt Count 228 (150-450) K/mm3 MPV 9.9 H (6-9.5) fl Gran % 54.6 (36.0-66.0) % Eos # (Auto) 0.34 (0-0.5) Absolute Lymphs (auto) 2.49 (1.0-4.6) Absolute Monos (auto) 0.65 (0.0-1.3) Lymphocytes % 32.2 (24.0-44.0) % Monocytes % 8.4 (0.0-12.0) % Eosinophils % 4.4 (0.00-5.0) % Basophils % 0.4 (0.0-0.4) % Absolute Granulocytes 4.23 (1.4-6.9) Basophils # 0.03 (0-0.4) Sodium 142 (137-145) mmol/L Potassium 5.1 (3.5-5.1) mmol/L Chloride 111 H (98-107) mmol/L Carbon Dioxide 20 L (22-30) mmol/L Anion Gap 16.6 H (5-15) MEQ/L BUN 29 H (7-17) mg/dL Creatinine 2.09 H (0.52-1.04) mg/dL Estimated GFR 24.3 ML/MIN Glucose 144 H (74-106) mg/dL Calcium 9.8 (8.4-10.2) mg/dL Total Bilirubin 0.50 (0.2-1.3) mg/dL AST 30 (14-36) U/L ALT 19 (0-35) U/L Alkaline Phosphatase 89 (38-126) U/L Troponin I 0.013 (0.000-0.034) ng/mL Serum Total Protein 7.3 (6.3-8.2) g/dL Albumin 4.3 (3.5-5.0) g/dL - Progress Progress: improved Counseled pt/family regarding: lab results, diagnosis, need for follow-up, rad results - Departure Departure Disposition: Home Clinical Impression: Dizziness and giddiness, Mechanical heart valve present, CKD stage 3 due to type 2 diabetes mellitus Condition: Stable Critical Care Time: Yes Critical Care Time(excluding separately billable procedures): 30-74 minutes Referrals: MICHELLE BOWMAN [Primary Care Provider] - Instructions: Dizziness, Nonvertigo, (DC) Additional Instructions: your dizziness is due to cipro side effects. Please stop cipro. 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 At that time you were treated for an emergent condition, during your visit Laboratory, Radiology and/or other procedures may have been ordered. It is very important that you follow-up with your Primary Care Physician MICHELLE BOWMAN within the next 24- 48 hours to review your Emergency Room visit and the final results of testing that was ordered. Some test results such as Urine Cultures, Blood Cultures, and other cultures if ordered will not be finalized for 24-48 hours. If you do not have a Primary Care Provider please call the medical records department at [phone] ext [phone] to obtain a copy of your results or you may sign into our patient portal to obtain these results by visiting us @ [email or web address] and completing the following steps: 1. Click on the Patient Portal link 2. Click the Patient Self Enrollment Link to complete the enrollment form and entering your 3. Once the enrollment form is completed you will receive an email with a temporary ID and password at the email address you provided. 4. Next choose a user name and password. Your user name must be at least 4 characters long and your password must be at least 4 characters long. 5. Choose a security question from the list and provide your answer to the question. If you already have signed into the Health Portal you may access your Health Care Information 04/04 by the following steps: 1. Login to our website @ [email or web address] 2. Enter your original user name and password. FAQS The [facility] Health Portal is an online tool that contains your Lab Results, Radiology Reports, Visit History, Discharge Instructions and Health Summary Lab and Radiology Results will not be available for 72 hours on the portal. The Portal is a secure site, passwords are encryted and URLs are re-written so they cannot be copied and pasted. You and authorized family members are the only ones who can access your Portal. Also there is a timeout feature that protects your information if you leave the Portal page open. If you have technical difficulty please use the Contact Us link on the page this will allow you to submit any questions you have regarding the Portal or you may contact the Medical Record Department at [phone] ext [phone].
[2019-01-14 16:19] LABS: ALBUMIN 4.3 g/dL (3.5-5.0); ANION GAP 16.6 MEQ/L (5-15); BILIRUBIN,TOTAL 0.5 mg/dL (0.2-1.3); Calcium 9.8 mg/dL (8.4-10.2); Creatinine 1 2.09 mg/dL (0.52-1.04); Potassium 5.1 mmol/L (3.5-5.1); Total Protein 7.3 g/dL (6.3-8.2)
[2019-01-14 17:14] VITALS: BP 102/64; PULSE 60; O2SAT 98
--- NOTE | 2019-01-15 08:36 | XRAY ---
Indication: Dizziness. Comparison: December 30, 2017. Portable chest remains clear. Heart is not enlarged again with cardiac valvular replacement surgery and left-sided pacemaker. Bony thorax intact again with osteopenia and degenerative changes. Impression: Stable nonacute chest with chronic features.
== END 2019-01-14 17:34 | disposition home or self-care (01) ==
LOC: ED 15:39
DX: L03.011 Cellulitis of right finger (principal); S61.212A Laceration without foreign body of right middle finger without damage to nail, initial encounter; Z79.01 Long term (current) use of anticoagulants; Z79.899 Other long term (current) drug therapy; Z86.73 Personal history of transient ischemic attack (TIA), and cerebral infarction without residual deficits
CPT/HCPCS: 36415; 71045; 80053; 84484; 85025; 85610; 93005; 93041; 96360; 99284

== ENCOUNTER 2019-08-24 17:25 | Emergency (ER) | payer MEDICARE, OTHER ==
--- NOTE | 2019-08-24 17:34 | ERPHSYRPT ---
- History of Present Illness Time Seen by Provider: 08/24/19 17:33 Source: patient, family Exam Limitations: no limitations Physician History: 79 y/o asymptomatic white female on coumadin and lovenox for past 2 days. pt had stopped her coumadin approx 2 days prior to a scheduled pacemaker change. per pt, there was a problem with her CMP so the procedure was placed on hold. pt was restarted on her coumadin and once daily lovenox. repeat INR last 2 days low so pt told to come to ED for management. Timing/Duration: today Modifying Factors: Improves With: other (nothing) Associated Symptoms: denies symptoms Allergies/Adverse Reactions: nalidixic acid [From NegGram] Allergy (Verified 08/24/19 18:20) nitrofurantoin macrocrystalline [From Macrodantin] Allergy (Verified 08/24/19 18 :20) oxytetracycline [From Terramycin] Allergy (Verified 08/24/19 18:20) oxytetracycline HCl [From Terramycin] Allergy (Verified 08/24/19 18:20) codeine [Codeine] Adverse Reaction (Mild, Verified 08/24/19 18:20) Pt states it makes her "climb the dasilva" Home Medications: [place]-3 Acid Ethyl Esters [Lovaza] 1 cap PO BID 01/05/13 [History] Bupropion HCl Xl 150 mg [Wellbutrin XL 150 MG] 150 mg PO DAILY 01/08/13 [ History] Digoxin 0.125 mg Tablet [Lanoxin 0.125MG TABLET] 0.125 mg PO UD 01/08/13 [ History] Gabapentin 300 mg [Neurontin 300 mg] 400 mg PO BID 01/08/13 [History] Levothyroxine Sodium 125 Mcg [Synthroid 125 Mcg] 88 mcg PO DAILY 01/08/13 [ History] Lorazepam 1 mg [Ativan 1 MG] 0.5 mg PO HS 01/08/13 [History] Metoprolol Tartrate 25 mg [Lopressor 25MG Tab] 25 mg PO BID 10/01/14 [ History] Potassium Chloride 10 Meq Tab* [Klor Con 10 MEQ] 10 meq PO BID 10/01/14 [ History] Spironolactone [Aldactone] 25 mg PO BID 10/01/14 [History] Warfarin Sodium 5 mg [Coumadin 5 MG] 6 mg PO HS 11/21/16 [History] Atorvastatin Calcium 20 mg PO DAILY 01/07/18 [History] Insulin Aspart [Novolog Flexpen] 4 units SQ TIDWM 01/07/18 [History] Insulin Glargine,Hum.rec.anlog [Toujeo Solostar] 22 units SQ HS 01/07/18 [ History] Lisinopril 10 mg PO BID 01/07/18 [History] Polyethylene Glycol 3350 17 gm [Miralax Powder 17GM PACKET] 17 gm PO DAILY [History] Donepezil HCl 5 mg PO BID 08/24/19 [History] Hx Tetanus, Diphtheria Vaccination/Date Given: No Hx Influenza Vaccination/Date Given: Yes Hx Pneumococcal Vaccination/Date Given: Yes - Review of Systems Constitutional: No Symptoms Eyes: No Symptoms Ears, Nose, & Throat: No Symptoms Respiratory: No Symptoms Cardiac: No Symptoms Abdominal/Gastrointestinal: No Symptoms Genitourinary Symptoms: No Symptoms Musculoskeletal: No Symptoms Skin: No Symptoms Neurological: No Symptoms Psychological: No Symptoms Endocrine: No Symptoms Hematologic/Lymphatic: No Symptoms Immunological/Allergic: No Symptoms All Other Systems: Reviewed and Negative - Past Medical History Pertinent Past Medical History: Yes Neurological History: Stroke ENT History: Cataracts Cardiac History: Arrhythmia, Deep Vein Thrombosis, Hypertension, Other Respiratory History: No Pertinent History Endocrine Medical History: Diabetes Type II, Hypothyroidism Musculoskeletal History: No Pertinent History GI Medical History: No Pertinent History History: No Pertinent History Psycho-Social History: Anxiety Female Reproductive Disorders: No Pertinent History - Past Surgical History Past Surgical History: Yes Neuro Surgical History: No Pertinent History Cardiac: Pacemaker, Valve Replacement Respiratory: No Pertinent History Gastrointestinal: Appendectomy, Cholecystectomy Genitourinary: No Pertinent History Musculoskeletal: No Pertinent History Female Surgical History: Hysterectomy Other Surgical History: THYROID REMOVED, LEFT CARPAL TUNNEL. cyst ovary. Bladder Surgery 1975 - Social History Smoking Status: Never smoker Exposure to second hand smoke: No Alcohol Use: None Drug Use: none Patient Lives Alone: No Significant Family History: no pertinent family hx - Nursing Vital Signs Nursing Vital Signs: Initial Vital Signs Temperature 98.0 F 08/24/19 18:02 Pulse Rate 68 08/24/19 18:02 Blood Pressure 131/60 08/24/19 18:02 O2 Sat by Pulse Oximetry 98 08/24/19 18:02 Pain Scale Pain Intensity 0 - Physical Exam General Appearance: no apparent distress, alert, anxiety Eye Exam: PERRL/EOMI, eyes nml inspection Ears, Nose, Throat Exam: normal ENT inspection, moist mucous membranes Neck Exam: normal inspection, non-tender, supple, full range of motion Respiratory Exam: airway intact, No chest tenderness, No respiratory distress Cardiovascular Exam: regular rate/rhythm, normal heart sounds, normal peripheral pulses Gastrointestinal/Abdomen Exam: No tenderness Pelvic Exam: not done Rectal Exam: not done Extremity Exam: normal inspection, normal range of motion, pelvis stable Neurologic Exam: alert, oriented x 3, cooperative, roguer II-XII nml as tested Skin Exam: normal color, warm, dry Lymphatic Exam: No adenopathy SpO2 Interpretation: normal O2 Delivery: Room Air - Course Nursing assessment & vital signs reviewed: Yes Ordered Tests: Active Orders 24 hr Category Date Time Status PT INR [PROTIME WITH INR] Stat Lab 08/24/19 18:05 Completed Lab/Rad Data: Laboratory Results 08/24/19 Range/Units 18:05 PT 16.6 H (9.95-12.35) SECONDS INR 1.46 (0.8-3.0) - Progress Progress: unchanged Progress Note: 08/24/19 18:[address] Love, aircraft life support fitter covering for Dr. Marshall. i reviewed pts labs , hx and condition with him. Dr. Love states no need to deal with this pt in ED and pt does not require admission. his plan is pt to take her lovenox twice on 08/25/19, once on 08/26/19. additionally, take her daily coumadin as prescribed on tue and tuesday. pt is to have a follow up pt/inr on 08/27/[address] Marshall on 08/27/[address] Other (Dr. Love, aircraft life support fitter covering for Dr. Marshall) Counseled pt/family regarding: lab results, diagnosis, need for follow-up - Departure Departure Disposition: Home Clinical Impression: Laboratory examination, Encounter for medical screening examination Condition: Stable Critical Care Time: No Referrals: MICHELLE BOWMAN [Primary Care Provider] - Additional Instructions: take your lovenox dose tonight, twice tomorrow and once daily thereafter until you discuss with dr. marshall. continue your warfarin/coumadin as prescribed. Call Dr. Marshall's office Tuesday08/27/19 for test results and further management. Follow up at lab here at [facility] on Tuesday for repeat lab draw.
[2019-08-24 18:15] LABS: INR 1.46 (0.8-3.0); PROTIME 16.6 SECONDS (9.95-12.35)
[2019-08-24 19:16] VITALS: BP 115/56; PULSE 65; O2SAT 99
== END 2019-08-24 19:17 | disposition home or self-care (01) ==
LOC: ED 17:25
DX: R79.1 Abnormal coagulation profile (principal); Z79.01 Long term (current) use of anticoagulants
CPT/HCPCS: 36415; 85610; 99283

== ENCOUNTER 2020-02-27 20:35 | Observation (INO) | payer MEDICARE, OTHER ==
--- NOTE | 2020-02-27 21:34 | ERPHSYRPT ---
- History of Present Illness Time Seen by Provider: 02/27/20 21:55 Historian: patient Exam Limitations: no limitations Patient Subjective Stated Complaint: pt states "I can't shit", pt states that she has not been able to have a bowel movement in over a week, pt states "my stool is so hard it hurts to sit", pt states that she vomited this morning Triage Nursing Assessment: pt wheeled into the er, pt is axo 3, pt abdomen is soft, bowels sounds hyperactive in all quads, c/o constipation, c/o 8/10 pain to rectum, lung sounds clear, vital wnl Physician History: Pt states her last BM was 1 week ago & she vomited once this morning without blood. Pt denies chest pain, shortness of air, fever, dysuria. Allergies/Adverse Reactions: nalidixic acid [From NegGram] Allergy (Verified 02/27/20 21:03) nitrofurantoin macrocrystalline [From Macrodantin] Allergy (Verified 02/27/20 21:03) oxytetracycline [From Terramycin] Allergy (Verified 02/27/20 21:03) oxytetracycline HCl [From Terramycin] Allergy (Verified 02/27/20 21:03) codeine [Codeine] Adverse Reaction (Mild, Verified 02/27/20 21:03) Pt states it makes her "climb the dasilva" Home Medications: Bupropion HCl Xl 150 mg [Wellbutrin XL 150 MG] 150 mg PO DAILY 01/08/13 [History] Digoxin 0.125 mg Tablet [Lanoxin 0.125MG TABLET] 0.125 mg PO UD 01/08/13 [History] Gabapentin 300 mg [Neurontin 300 mg] 400 mg PO BID 01/08/13 [History] Levothyroxine Sodium 125 Mcg [Synthroid 125 Mcg] 88 mcg PO DAILY 01/08/13 [History] Lorazepam 1 mg [Ativan 1 MG] 0.5 mg PO HS 01/08/13 [History] Metoprolol Tartrate 25 mg [Lopressor 25MG Tab] 25 mg PO BID 10/01/14 [History] Warfarin Sodium 5 mg [Coumadin 5 MG] 6 mg PO HS 11/21/16 [History] Atorvastatin Calcium 20 mg PO DAILY 01/07/18 [History] Insulin Aspart [Novolog Flexpen] 10 units SQ TIDWM 01/07/18 [History] Insulin Glargine,Hum.rec.anlog [Toujeo Solostar] 22 units SQ HS 01/07/18 [History] Polyethylene Glycol 3350 17 gm [Miralax Powder 17GM PACKET] 17 gm PO DAILY 01/07/18 [History] lisinopriL [Lisinopril] 10 mg PO BID 01/07/18 [History] Donepezil HCl 5 mg PO BID 08/24/19 [History] Hx Tetanus, Diphtheria Vaccination/Date Given: Yes Hx Influenza Vaccination/Date Given: Yes Hx Pneumococcal Vaccination/Date Given: Yes Travel Risk - International Travel Have you traveled outside of the country in past 3 weeks: No - Coronavirus Screening Are you exhibiting any of the following symptoms?: No Close contact with a COVID-19 positive Pt in past 14-21 Days: No - Review of Systems Constitutional: No Fever, No Chills Respiratory: No Cough, No Dyspnea Cardiac: No Chest Pain Abdominal/Gastrointestinal: Vomiting (once today), Constipation (last BM was 1 week ago.) All Other Systems: Reviewed and Negative - Past Medical History Pertinent Past Medical History: Yes Neurological History: Stroke ENT History: Cataracts Cardiac History: Arrhythmia, Deep Vein Thrombosis, Hypertension, Other Respiratory History: No Pertinent History Endocrine Medical History: Diabetes Type II, Hypothyroidism Musculoskeletal History: No Pertinent History GI Medical History: No Pertinent History History: No Pertinent History Psycho-Social History: Anxiety Female Reproductive Disorders: No Pertinent History - Past Surgical History Past Surgical History: Yes Neuro Surgical History: No Pertinent History Cardiac: Pacemaker, Valve Replacement Respiratory: No Pertinent History Gastrointestinal: Appendectomy, Cholecystectomy Genitourinary: No Pertinent History Musculoskeletal: No Pertinent History Female Surgical History: Hysterectomy Other Surgical History: THYROID REMOVED, LEFT CARPAL TUNNEL. cyst ovary. Bladder Surgery 1975 - Social History Smoking Status: Never smoker Exposure to second hand smoke: No Alcohol Use: None Drug Use: none Patient Lives Alone: No Significant Family History: no pertinent family hx - Female History Hx Now: No - Nursing Vital Signs Nursing Vital Signs: Initial Vital Signs Temperature 97.7 F 02/27/20 20:52 Pulse Rate 89 02/27/20 20:52 Respiratory Rate 16 02/27/20 20:52 Blood Pressure 122/66 02/27/20 20:52 O2 Sat by Pulse Oximetry 96 02/27/20 20:52 Pain Scale Pain Intensity 4 - Physical Exam General Appearance: alert Eye Exam: eyes nml inspection Ears, Nose, Throat Exam: pharynx normal, moist mucous membranes Neck Exam: normal inspection Respiratory Exam: lungs clear Cardiovascular Exam: other (prosthetic heart valve sounds.) Gastrointestinal/Abdomen Exam: soft, No normal bowel sounds (b.s. hyperactive and normotonic) Back Exam: normal inspection Extremity Exam: No pedal edema Neurologic Exam: alert, cooperative Skin Exam: warm, dry SpO2 Interpretation: normal SpO2: 96 O2 Delivery: Room Air - Course Nursing assessment & vital signs reviewed: Yes - CT Exams Abdomen/Pelvis CT Interpretation: Tele-radiologist Report (see report) Ordered Tests: Active Orders 24 hr Category Date Time Status IV Insertion STAT Care 02/27/20 23:59 Active ABDOMEN AND PELVIS W/0 CONTRAS [CT] Stat Exams 02/27/20 22:05 Taken AMYLASE Stat Lab 02/27/20 22:42 Completed BLOOD CULTURE Stat Lab 02/28/20 00:00 Ordered CBC W DIFF Stat Lab 02/27/20 22:42 Completed CMP Stat Lab 02/27/20 22:42 Completed CULTURE,URINE Stat Lab 02/27/20 23:45 Received LIPASE Stat Lab 02/27/20 22:42 Completed UA W/RFX UR CULTURE Stat Lab 02/27/20 23:45 Completed Medication Summary Generic Name Dose Route Start Last Admin Trade Name Janene PRN Reason Stop Dose Admin Sodium Chloride 1,000 mls @ 125 mls/hr 02/27/20 23:45 Sodium Chloride 0.9% 1000 Ml IV 03/28/20 23:44 .Q8H STEPHEN Ceftriaxone Sodium/Dextrose 1 g in 50 mls @ 100 mls/hr 02/28/20 00:00 Rocephin 1 Gm-D5w 50 Ml Bag IV 02/28/20 00:29 STAT STA Lab/Rad Data: Laboratory Result Diagrams 02/27/20 22:42 02/27/20 22:42 Laboratory Results 02/27/20 02/27/20 02/27/20 Range/Units 23:45 22:42 22:42 WBC 8.7 (4.0-10.5) K/mm3 RBC 3.65 L (4.1-5.4) M/mm3 Hgb 11.1 L (12.0-16.0) gm/dl Hct 33.7 L (35-47) % MCV 92.3 (78-100) fl MCH 30.4 (26-32) pg MCHC 32.9 (32-36) g/dl RDW 15.0 H (11.5-14.0) % Plt Count 198 (150-450) K/mm3 MPV 10.9 (7.5-11.0) fl Gran % 74.3 H (36.0-66.0) % Eos # (Auto) 0.13 (0-0.5) Absolute Lymphs (auto) 1.54 (1.0-4.6) Absolute Monos (auto) 0.54 (0.0-1.3) Lymphocytes % 17.7 L (24.0-44.0) % Monocytes % 6.2 (0.0-12.0) % Eosinophils % 1.5 (0.00-5.0) % Basophils % 0.3 (0.0-0.4) % Absolute Granulocytes 6.47 (1.4-6.9) Basophils # 0.03 (0-0.4) Sodium 141 (137-145) mmol/L Potassium 4.4 (3.5-5.1) mmol/L Chloride 110 H (98-107) mmol/L Carbon Dioxide 24 (22-30) mmol/L Anion Gap 11.2 (5-15) MEQ/L BUN 35 H (7-17) mg/dL Creatinine 1.61 H (0.52-1.04) mg/dL Estimated GFR 32.7 ML/MIN Glucose 142 H (74-106) mg/dL Calcium 9.3 (8.4-10.2) mg/dL Total Bilirubin 0.60 (0.2-1.3) mg/dL AST 33 (14-36) U/L ALT 32 (0-35) U/L Alkaline Phosphatase 101 (38-126) U/L Serum Total Protein 7.2 (6.3-8.2) g/dL Albumin 4.4 (3.5-5.0) g/dL Amylase 57 (30-110) U/L Lipase 101 (23-300) U/L Urine Color YELLOW (YELLOW) Urine Appearance CLOUDY (CLEAR) Urine pH 7.0 (5-6) Ur Specific [place] 1.011 (1.005-1.025) Urine Protein 30 (Negative) Urine Ketones NEGATIVE (NEGATIVE) Urine Blood NEGATIVE (0-5) Justin/ul Urine Nitrite NEGATIVE (NEGATIVE) Urine Bilirubin NEGATIVE (NEGATIVE) Urine Urobilinogen NEGATIVE (0-1) mg/dL Ur Leukocyte Esterase MODERATE (NEGATIVE) Urine WBC (Auto) >100 (0-5) /HPF Urine RBC (Auto) 11-15 (0-2) /HPF U Epithel Cells (Auto) NONE (FEW) /HPF Urine Bacteria (Auto) MODERATE (NEGATIVE) /HPF Unidentified Crystals 25-50 (NEGATIVE) /HPF Urine Culture Reflexed YES (NO) Urine Glucose NEGATIVE (NEGATIVE) mg/dL - Progress Progress: unchanged Discussed with Dr.: Marquez (obs) Counseled pt/family regarding: lab results, rad results - Departure Departure Disposition: Observation Clinical Impression: Constipation, UTI (urinary tract infection) Condition: Stable Critical Care Time: No Referrals: MICHELLE BOWMAN [Primary Care Provider] -
[2020-02-27 22:45] LABS: Absolute Neutrophil Ct (ANC) 6.47 (1.4-6.9); BASOPHIL % 0.3 % (0.0-0.4); Basophil (Absolute #) 0.03 (0-0.4); Eosinophil % 1.5 % (0.00-5.0); Eosinophil (Absolute #) 0.13 (0-0.5); Hematocrit 33.7 % (35-47); Hemoglobin 11.1 gm/dl (12.0-16.0); Lymphocyte (Absolute #) 1.54 (1.0-4.6); Lymphocytes % 17.7 % (24.0-44.0); Mean Cell Volume 92.3 fl (78-100); Mean Corpuscular Hemoglobin 30.4 pg (26-32); Mean Corpuscular Hgb Concent. 32.9 g/dl (32-36); Mean Platelet Volume 10.9 fl (7.5-11.0); Monocyte (Absolute #) 0.54 (0.0-1.3); Monocytes % 6.2 % (0.0-12.0); Neutrophil % 74.3 % (36.0-66.0); Platelet Count 198 K/mm3 (150-450); Red Blood Count 3.65 M/mm3 (4.1-5.4); White Blood Count 8.7 K/mm3 (4.0-10.5)
[2020-02-27 22:56] LABS: ALBUMIN 4.4 g/dL (3.5-5.0); ANION GAP 11.2 MEQ/L (5-15); BILIRUBIN,TOTAL 0.6 mg/dL (0.2-1.3); Calcium 9.3 mg/dL (8.4-10.2); Creatinine 1 1.61 mg/dL (0.52-1.04); Potassium 4.4 mmol/L (3.5-5.1); Total Protein 7.2 g/dL (6.3-8.2)
[2020-02-27] MEDS ORDERED: Sodium Chloride 0.9% 1000 ML 1,000 ML IV SCH (23:45)
[2020-02-27 23:52] LABS: Appearance CLOUDY (CLEAR); Bacteria MODERATE /HPF (NEGATIVE); Bilirubin NEGATIVE (NEGATIVE); Blood NEGATIVE Ery/ul (0-5); Crystals Unidentified 25-50 /HPF (NEGATIVE); Glucose NEGATIVE (NEGATIVE); Ketones NEGATIVE (NEGATIVE); Leukocyte Esterase MODERATE (NEGATIVE); Nitrite NEGATIVE (NEGATIVE); Protein,Urine Dip 30 (Negative); Specific Gravity 1.011 (1.005-1.025); Urobilinogen NEGATIVE mg/dL (0-1); WBC >100 /HPF (0-5)
[2020-02-28] MEDS ORDERED: ROCEPHIN 1 Gm-D5w 50 ml Bag** 1 G/50 ML IVPB IV STA
[2020-02-28] MEDS ORDERED: Zofran 4 MG/2 ML VIAL IV PRN (00:08)
[2020-02-28 00:41] LABS: INR 3.56 (0.8-3.0); PROTIME 40.7 SECONDS (9.95-12.35)
[2020-02-28 00:44] LABS: PTT 46.8 SECONDS (25.3-37.0)
[2020-02-28] MEDS ORDERED: Coumadin 5 MG PO ONE (03:39)
[2020-02-28 05:11] LABS: Absolute Neutrophil Ct (ANC) 7.91 (1.4-6.9); BASOPHIL % 0.3 % (0.0-0.4); Basophil (Absolute #) 0.03 (0-0.4); Eosinophil % 1.3 % (0.00-5.0); Eosinophil (Absolute #) 0.14 (0-0.5); Hematocrit 31.5 % (35-47); Hemoglobin 10.3 gm/dl (12.0-16.0); Lymphocyte (Absolute #) 1.84 (1.0-4.6); Lymphocytes % 17.1 % (24.0-44.0); Mean Cell Volume 92.4 fl (78-100); Mean Corpuscular Hemoglobin 30.2 pg (26-32); Mean Corpuscular Hgb Concent. 32.7 g/dl (32-36); Mean Platelet Volume 11.1 fl (7.5-11.0); Monocyte (Absolute #) 0.81 (0.0-1.3); Monocytes % 7.5 % (0.0-12.0); Neutrophil % 73.8 % (36.0-66.0); Platelet Count 189 K/mm3 (150-450); Red Blood Count 3.41 M/mm3 (4.1-5.4); Red Cell Distribution Width 14.9 % (11.5-14.0); White Blood Count 10.7 K/mm3 (4.0-10.5)
[2020-02-28 05:34] LABS: ALBUMIN 3.9 g/dL (3.5-5.0); ANION GAP 13.1 MEQ/L (5-15); BILIRUBIN,TOTAL 0.6 mg/dL (0.2-1.3); Creatinine 1 1.46 mg/dL (0.52-1.04); Potassium 4.2 mmol/L (3.5-5.1); Total Protein 6.6 g/dL (6.3-8.2)
--- NOTE | 2020-02-28 08:40 | XRAY ---
Indication: Constipation 1 week left sided head injury. Vomiting. Multiple contiguous axial images obtained through the abdomen and pelvis without contrast as ordered. Comparison: May 03, 2011. Lung bases demonstrates minimal bibasilar fibrosis/scarring without focal infiltrate or effusion. Heart remains enlarged. Stable moderate hiatal hernia with partial intrathoracic stomach. Noncontrasted stomach and bowel loops appear nonobstructed. There is mild diffuse scattered colonic fecal debris throughout including large rectal impaction. Minimal sigmoid diverticulosis. Reported appendectomy, cholecystectomy, and hysterectomy. New subcentimeter bilateral renal cysts. No free fluid/air. Remaining liver, pancreas, spleen, adrenal glands, kidneys, ureters, and bladder appear unremarkable for noncontrast exam. Mild scattered aortoiliac calcifications without AAA. Osseous structures intact with now mild multilevel degenerative spondylosis throughout the thoracolumbar spine including new minimal grade 1 spondylolisthesis of L4 on L5 on S1. Impression: 1. Again fecal stasis with new large rectal impaction. 2. New sigmoid diverticulosis and bilateral renal cysts. 3. Stable hiatal hernia and cardiomegaly. 4. Worsening multilevel degenerative spondylosis with now minimal grade 1 spondylolisthesis L4-S1. Comment: Preliminary interpretation was made by [facility]. No critical discrepancy.
[2020-02-28] MEDS ORDERED: Miralax Powder 17GM PACKET PO SCH (10:00)
[2020-02-28] MEDS ORDERED: SYNTHROID 88 MCG PO SCH (10:00)
[2020-02-28] MEDS ORDERED: Wellbutrin XL 150 MG PO SCH (10:00)
[2020-02-28] MEDS ORDERED: Lopressor 25MG Tab PO SCH (10:30)
[2020-02-28] MEDS ORDERED: Neurontin 400 MG PO SCH (10:30)
[2020-02-28] MEDS ORDERED: Zestril 10 MG PO SCH (10:30)
[2020-02-28] MEDS ORDERED: Aricept 10 MG PO SCH (10:45)
[2020-02-28 11:21] VITALS: BP 110/52; PULSE 63; O2SAT 96
[2020-02-28] MEDS ORDERED: HUMALOG SQ SCH (12:00)
[2020-02-28] MEDS ORDERED: INSULIN ASPART 10 UNIT SQ SCH (12:00)
[2020-02-28] MEDS ORDERED: Rocephin 1000 MG INJ IM ONE (14:23)
[2020-02-28] MEDS ORDERED: XYLOCAINE 1% HCL 20 ML MDV IJ ONE (14:25)
--- NOTE | 2020-02-28 14:30 | PCM.SSS ---
History of Present Illness - Chief Complaint Chief Complaint: Constipation; UTI. History of Present Illness: is a 79 year old female pt of Dr. Quinteros with DM, Alzheimer's dz, cerebrovascular dz, and recurrent UTIs who was admitted through ER with fecal impaction and UTI. Had been vomiting and had been 1 week since her last BM. She used to take miralax regularly but she stopped because she was having diarrhea. Apparently the amount of stool was so large on CT that it was compre ssing the bladder and she had a UTI. She was started on IV rocephin. Overnight she had a very large amount of stool out, and is feeling great this morning and would like to go home. She's had 1 dose of IV rocephin; her IV went bad, so she will get her second dose IM today then discharge to home to finish 5 more days of cefdinir. F/u in 1 wk. - Review of Systems Respiratory: Cough (chronic, with phlegm) Cardiac: Edema (chronic, LE bilat) Abdominal/Gastrointestinal: Nausea, Vomiting, Constipation, Hematochezia (bright red blood in the stool last week; none recently), No Abdominal Pain, No Melena Medications & Allergies Home Medications: Home Medication List Bupropion HCl Xl 150 mg [Wellbutrin XL 150 MG] 150 mg PO DAILY 01/08/13 [History Confirmed 02/28/20] Digoxin 0.125 mg Tablet [Lanoxin 0.125MG TABLET] 0.125 mg PO UD 01/08/13 [History Confirmed 02/28/20] Gabapentin 300 mg [Neurontin 300 mg] 400 mg PO BID 01/08/13 [History Confirmed 02/28/20] Levothyroxine Sodium 125 Mcg [Synthroid 125 Mcg] 88 mcg PO DAILY 01/08/13 [History Confirmed 02/28/20] Lorazepam 1 mg [Ativan 1 MG] 0.5 mg PO HS 01/08/13 [History Confirmed 02/10 05/01] Metoprolol Tartrate 25 mg [Lopressor 25MG Tab] 25 mg PO BID 10/01/14 [History Confirmed 02/28/20] Warfarin Sodium 5 mg [Coumadin 5 MG] 6 mg PO HS 11/21/16 [History Confirmed 02/28/20] Atorvastatin Calcium 20 mg PO DAILY 01/07/18 [History Confirmed 02/28/20] Insulin Aspart [Novolog Flexpen] 10 units SQ TIDWM 01/07/18 [History Confirmed 02/28/20] Insulin Glargine,Hum.rec.anlog [Toujeo Solostar] 16 units SQ HS 01/07/18 [History Confirmed 02/28/20] Polyethylene Glycol 3350 17 gm [Miralax Powder 17GM PACKET] 17 gm PO DAILY 01/07/18 [History Confirmed 02/27/20] lisinopriL [Lisinopril] 10 mg PO BID 01/07/18 [History Confirmed 02/28/20] Donepezil HCl 5 mg PO BID 08/24/19 [History Confirmed 02/28/20] Cefdinir 300 mg PO BID #10 capsule 02/28/20 [Rx] Allergies/Adverse Reactions: Allergies Allergy/AdvReac Type Severity Reaction Status Date / Time nalidixic acid [From NegGram] Allergy Severe Hives Verified 02/28/20 01:16 nitrofurantoin Allergy Severe Hives Verified 02/28/20 01:16 macrocrystalline [From Macrodantin] oxytetracycline HCl Allergy Severe Nausea and Verified 02/28/20 01:16 [From Terramycin] Vomiting oxytetracycline Allergy makes pt Verified 02/28/20 01:16 [From Terramycin] go crazy codeine [Codeine] AdvReac Intermediate Verified 02/28/20 01:16 - Past Medical History Past Medical History: Yes Neurological History: Stroke ENT History: Cataracts Cardiac History: Arrhythmia, Deep Vein Thrombosis, Hypertension, Other Respiratory History: No Pertinent History Endocrine Medical History: Diabetes Type II, Hypothyroidism Musculoskelatal History: Arthritis GI Medical History: No Pertinent History History: No Pertinent History Pyscho-Social History: Anxiety Reproductive Disorders: No Pertinent History - Female History Are you now?: No - Past Surgical History Past Surgical History: Yes Neuro Surgical History: No Pertinent History Cardiac History: Pacemaker, Valve Replacement Respiratory Surgery: No Pertinent History GI Surgical History: Appendectomy, Cholecystectomy Genitourinary Surgical Hx: No Pertinent History Musculskeletal Surgical Hx: No Pertinent History Female Surgical History: Hysterectomy Other Surgical History: THYROID REMOVED, LEFT CARPAL TUNNEL. cyst ovary. Bladder Surgery 1974 - Social History Smoking Status: Never smoker Exposure to second hand smoke: No Alcohol: None Drug Use: none Significant Family History: no pertinent family hx - Physical Exam Vital Signs: Vital Signs - 24 hr Temp Pulse Resp BP Pulse Ox 02/28/20 11:21 98 F 63 18 110/52 96 02/28/20 07:10 98.1 F 68 20 108/53 94 L 02/28/20 02:30 98.6 F 65 16 127/60 97 02/28/20 00:06 96 02/27/20 23:49 69 126/69 96 02/27/20 20:52 97.7 F 89 16 122/66 96 General Appearance: no apparent distress, alert Neurologic Exam: oriented x 3, cooperative, other (eating breakfast) Eye Exam: eyes nml inspection Ears, Nose, Throat Exam: moist mucous membranes Respiratory Exam: normal breath sounds, lungs clear, No crackles/rales, No rhonchi, No wheezing Cardiovascular Exam: regular rate/rhythm, normal heart sounds, No murmur Results - Labs Lab/Micro Results: Accuchecks Date 02/28/20 Time 02:30 Accucheck Value: 185 Accucheck Value: 145 Accucheck Value: 135 Lab Results-Last 24 Hours 02/27/20 02/27/20 02/27/20 Range/Units 22:42 22:42 23:45 WBC 8.7 (4.0-10.5) K/mm3 RBC 3.65 L (4.1-5.4) M/mm3 Hgb 11.1 L (12.0-16.0) gm/dl Hct 33.7 L (35-47) % MCV 92.3 (78-100) fl MCH 30.4 (26-32) pg MCHC 32.9 (32-36) g/dl RDW 15.0 H (11.5-14.0) % Plt Count 198 (150-450) K/mm3 MPV 10.9 (7.5-11.0) fl Gran % 74.3 H (36.0-66.0) % Eos # (Auto) 0.13 (0-0.5) Absolute Lymphs (auto) 1.54 (1.0-4.6) Absolute Monos (auto) 0.54 (0.0-1.3) Lymphocytes % 17.7 L (24.0-44.0) % Monocytes % 6.2 (0.0-12.0) % Eosinophils % 1.5 (0.00-5.0) % Basophils % 0.3 (0.0-0.4) % Absolute Granulocytes 6.47 (1.4-6.9) Basophils # 0.03 (0-0.4) PT (9.95-12.35) SECONDS INR (0.8-3.0) APTT (25.3-37.0) SECONDS Sodium 141 (137-145) mmol/L Potassium 4.4 (3.5-5.1) mmol/L Chloride 110 H (98-107) mmol/L Carbon Dioxide 24 (22-30) mmol/L Anion Gap 11.2 (5-15) MEQ/L BUN 35 H (7-17) mg/dL Creatinine 1.61 H (0.52-1.04) mg/dL Estimated GFR 32.7 ML/MIN Glucose 142 H (74-106) mg/dL Calcium 9.3 (8.4-10.2) mg/dL Total Bilirubin 0.60 (0.2-1.3) mg/dL AST 33 (14-36) U/L ALT 32 (0-35) U/L Alkaline Phosphatase 101 (38-126) U/L Serum Total Protein 7.2 (6.3-8.2) g/dL Albumin 4.4 (3.5-5.0) g/dL Amylase 57 (30-110) U/L Lipase 101 (23-300) U/L Urine Color YELLOW (YELLOW) Urine Appearance CLOUDY (CLEAR) Urine pH 7.0 (5-6) Ur Specific [place] 1.011 (1.005-1.025) Urine Protein 30 (Negative) Urine Ketones NEGATIVE (NEGATIVE) Urine Blood NEGATIVE (0-5) Justin/ul Urine Nitrite NEGATIVE (NEGATIVE) Urine Bilirubin NEGATIVE (NEGATIVE) Urine Urobilinogen NEGATIVE (0-1) mg/dL Ur Leukocyte Esterase MODERATE (NEGATIVE) Urine WBC (Auto) >100 (0-5) /HPF Urine RBC (Auto) 11-15 (0-2) /HPF U Epithel Cells (Auto) NONE (FEW) /HPF Urine Bacteria (Auto) MODERATE (NEGATIVE) /HPF Unidentified Crystals 25-50 (NEGATIVE) /HPF Urine Culture Reflexed YES (NO) Urine Glucose NEGATIVE (NEGATIVE) mg/dL 02/28/20 02/28/20 02/28/20 Range/Units 00:37 04:52 04:52 WBC 10.7 H (4.0-10.5) K/mm3 RBC 3.41 L (4.1-5.4) M/mm3 Hgb 10.3 L (12.0-16.0) gm/dl Hct 31.5 L (35-47) % MCV 92.4 (78-100) fl MCH 30.2 (26-32) pg MCHC 32.7 (32-36) g/dl RDW 14.9 H (11.5-14.0) % Plt Count 189 (150-450) K/mm3 MPV 11.1 H (7.5-11.0) fl Gran % 73.8 H (36.0-66.0) % Eos # (Auto) 0.14 (0-0.5) Absolute Lymphs (auto) 1.84 (1.0-4.6) Absolute Monos (auto) 0.81 (0.0-1.3) Lymphocytes % 17.1 L (24.0-44.0) % Monocytes % 7.5 (0.0-12.0) % Eosinophils % 1.3 (0.00-5.0) % Basophils % 0.3 (0.0-0.4) % Absolute Granulocytes 7.91 H (1.4-6.9) Basophils # 0.03 (0-0.4) PT 40.7 H (9.95-12.35) SECONDS INR 3.56 H (0.8-3.0) APTT 46.8 H (25.3-37.0) SECONDS Sodium 140 (137-145) mmol/L Potassium 4.2 (3.5-5.1) mmol/L Chloride 109 H (98-107) mmol/L Carbon Dioxide 22 (22-30) mmol/L Anion Gap 13.1 (5-15) MEQ/L BUN 31 H (7-17) mg/dL Creatinine 1.46 H (0.52-1.04) mg/dL Estimated GFR 36.6 ML/MIN Glucose 140 H (74-106) mg/dL Calcium 9.0 (8.4-10.2) mg/dL Total Bilirubin 0.60 (0.2-1.3) mg/dL AST 29 (14-36) U/L ALT 27 (0-35) U/L Alkaline Phosphatase 84 (38-126) U/L Serum Total Protein 6.6 (6.3-8.2) g/dL Albumin 3.9 (3.5-5.0) g/dL Amylase (30-110) U/L Lipase (23-300) U/L Urine Color (YELLOW) Urine Appearance (CLEAR) Urine pH (5-6) Ur Specific [place] (1.005-1.025) Urine Protein (Negative) Urine Ketones (NEGATIVE) Urine Blood (0-5) Justin/ul Urine Nitrite (NEGATIVE) Urine Bilirubin (NEGATIVE) Urine Urobilinogen (0-1) mg/dL Ur Leukocyte Esterase (NEGATIVE) Urine WBC (Auto) (0-5) /HPF Urine RBC (Auto) (0-2) /HPF U Epithel Cells (Auto) (FEW) /HPF Urine Bacteria (Auto) (NEGATIVE) /HPF Unidentified Crystals (NEGATIVE) /HPF Urine Culture Reflexed (NO) Urine Glucose (NEGATIVE) mg/dL Accuchecks Date 02/28/20 Time 02:30 Accucheck Value: 185 Accucheck Value: 145 Accucheck Value: 135 - Radiology Impressions Radiology Exams & Impressions: Radiology Procedures Category Date Time Status ABDOMEN AND PELVIS W/0 CONTRAS [CT] Stat Exams 02/27/20 22:05 Completed Assessment/Plan (1) Constipation Current Visit: Yes Status: Acute Qualifiers: Constipation type: slow transit constipation Qualified Code(s): K59.01 - Slow transit constipation Assessment & Plan: resume miralax but titrate to regular stools. Code(s): K59.00 - CONSTIPATION, UNSPECIFIED (2) UTI (urinary tract infection) Current Visit: Yes Status: Acute Qualifiers: Urinary tract infection type: acute cystitis Hematuria presence: without hematuria Qualified Code(s): N30.00 - Acute cystitis without hematuria Assessment & Plan: sensitivity pending. Home on cefdinir. Code(s): N39.0 - URINARY TRACT INFECTION, SITE NOT SPECIFIED (3) CKD stage 3 due to type 2 diabetes mellitus Current Visit: No Status: Chronic Code(s): E11.22 - TYPE 2 DIABETES MELLITUS W DIABETIC CHRONIC KIDNEY DISEASE; N18.3 - CHRONIC KIDNEY DISEASE, STAGE 3 (MODERATE) (4) Type 2 diabetes mellitus Current Visit: No Status: Chronic Qualifiers: Diabetes mellitus jail insulin use: with long distance operator use Diabetes mellitus complication status: with circulatory complication Diabetes mellitus complication detail: with other circulatory complications Qualified Code(s): E11.59 - Type 2 diabetes mellitus with other circulatory complications; Z79.4 - nursing home (current) use of insulin Hospital Summary - Hospital Course Hospital Course: is a 79 year old female pt of Dr. Zacarias' with DM, Alzheimer's dz, cerebrovascular dz, and recurrent UTIs who was admitted through ER with fecal impaction and UTI. Had been vomiting and had been 1 week since her last BM. She used to take miralax regularly but she stopped because she was having diarrhea. Apparently the amount of stool was so large on CT that it was compressing the bladder and she had a UTI. She was started on IV rocephin. Overnight she had a very large amount of stool out, and is feeling great this morning and would like to go home. She's had 1 dose of IV rocephin; her IV went bad, so she will get her second dose IM today then discharge to home to finish 5 more days of cefdinir. She's never had a colonoscopy and does not want one. F/u in 1 wk. - Vitals & Intake/Output Vital Signs: Vital Signs Temperature 98 F 02/28/20 11:21 Pulse Rate 63 02/28/20 11:21 Respiratory Rate 18 02/28/20 11:21 Blood Pressure 110/52 02/28/20 11:21 O2 Sat by Pulse Oximetry 96 02/28/20 11:21 Intake & Output: Intake & Output 02/26/20 02/27/20 02/28/20 02/29/20 11:59 11:59 11:59 11:59 Intake Total 855 240 Output Total 350 Balance 505 240 Weight 70.3 kg - Lab Result Diagrams: 02/28/20 04:52 02/28/20 04:52 Lab Results-Last 24 Hrs: Accuchecks Date 02/28/20 Time 02:30 Accucheck Value: 185 Accucheck Value: 145 Accucheck Value: 135 Lab Results-Last 24 Hours 02/27/20 02/27/20 02/27/20 Range/Units 22:42 22:42 23:45 WBC 8.7 (4.0-10.5) K/mm3 RBC 3.65 L (4.1-5.4) M/mm3 Hgb 11.1 L (12.0-16.0) gm/dl Hct 33.7 L (35-47) % MCV 92.3 (78-100) fl MCH 30.4 (26-32) pg MCHC 32.9 (32-36) g/dl RDW 15.0 H (11.5-14.0) % Plt Count 198 (150-450) K/mm3 MPV 10.9 (7.5-11.0) fl Gran % 74.3 H (36.0-66.0) % Eos # (Auto) 0.13 (0-0.5) Absolute Lymphs (auto) 1.54 (1.0-4.6) Absolute Monos (auto) 0.54 (0.0-1.3) Lymphocytes % 17.7 L (24.0-44.0) % Monocytes % 6.2 (0.0-12.0) % Eosinophils % 1.5 (0.00-5.0) % Basophils % 0.3 (0.0-0.4) % Absolute Granulocytes 6.47 (1.4-6.9) Basophils # 0.03 (0-0.4) PT (9.95-12.35) SECONDS INR (0.8-3.0) APTT (25.3-37.0) SECONDS Sodium 141 (137-145) mmol/L Potassium 4.4 (3.5-5.1) mmol/L Chloride 110 H (98-107) mmol/L Carbon Dioxide 24 (22-30) mmol/L Anion Gap 11.2 (5-15) MEQ/L BUN 35 H (7-17) mg/dL Creatinine 1.61 H (0.52-1.04) mg/dL Estimated GFR 32.7 ML/MIN Glucose 142 H (74-106) mg/dL Calcium 9.3 (8.4-10.2) mg/dL Total Bilirubin 0.60 (0.2-1.3) mg/dL AST 33 (14-36) U/L ALT 32 (0-35) U/L Alkaline Phosphatase 101 (38-126) U/L Serum Total Protein 7.2 (6.3-8.2) g/dL Albumin 4.4 (3.5-5.0) g/dL Amylase 57 (30-110) U/L Lipase 101 (23-300) U/L Urine Color YELLOW (YELLOW) Urine Appearance CLOUDY (CLEAR) Urine pH 7.0 (5-6) Ur Specific [place] 1.011 (1.005-1.025) Urine Protein 30 (Negative) Urine Ketones NEGATIVE (NEGATIVE) Urine Blood NEGATIVE (0-5) Justin/ul Urine Nitrite NEGATIVE (NEGATIVE) Urine Bilirubin NEGATIVE (NEGATIVE) Urine Urobilinogen NEGATIVE (0-1) mg/dL Ur Leukocyte Esterase MODERATE (NEGATIVE) Urine WBC (Auto) >100 (0-5) /HPF Urine RBC (Auto) 11-15 (0-2) /HPF U Epithel Cells (Auto) NONE (FEW) /HPF Urine Bacteria (Auto) MODERATE (NEGATIVE) /HPF Unidentified Crystals 25-50 (NEGATIVE) /HPF Urine Culture Reflexed YES (NO) Urine Glucose NEGATIVE (NEGATIVE) mg/dL 02/28/20 02/28/20 02/28/20 Range/Units 00:37 04:52 04:52 WBC 10.7 H (4.0-10.5) K/mm3 RBC 3.41 L (4.1-5.4) M/mm3 Hgb 10.3 L (12.0-16.0) gm/dl Hct 31.5 L (35-47) % MCV 92.4 (78-100) fl MCH 30.2 (26-32) pg MCHC 32.7 (32-36) g/dl RDW 14.9 H (11.5-14.0) % Plt Count 189 (150-450) K/mm3 MPV 11.1 H (7.5-11.0) fl Gran % 73.8 H (36.0-66.0) % Eos # (Auto) 0.14 (0-0.5) Absolute Lymphs (auto) 1.84 (1.0-4.6) Absolute Monos (auto) 0.81 (0.0-1.3) Lymphocytes % 17.1 L (24.0-44.0) % Monocytes % 7.5 (0.0-12.0) % Eosinophils % 1.3 (0.00-5.0) % Basophils % 0.3 (0.0-0.4) % Absolute Granulocytes 7.91 H (1.4-6.9) Basophils # 0.03 (0-0.4) PT 40.7 H (9.95-12.35) SECONDS INR 3.56 H (0.8-3.0) APTT 46.8 H (25.3-37.0) SECONDS Sodium 140 (137-145) mmol/L Potassium 4.2 (3.5-5.1) mmol/L Chloride 109 H (98-107) mmol/L Carbon Dioxide 22 (22-30) mmol/L Anion Gap 13.1 (5-15) MEQ/L BUN 31 H (7-17) mg/dL Creatinine 1.46 H (0.52-1.04) mg/dL Estimated GFR 36.6 ML/MIN Glucose 140 H (74-106) mg/dL Calcium 9.0 (8.4-10.2) mg/dL Total Bilirubin 0.60 (0.2-1.3) mg/dL AST 29 (14-36) U/L ALT 27 (0-35) U/L Alkaline Phosphatase 84 (38-126) U/L Serum Total Protein 6.6 (6.3-8.2) g/dL Albumin 3.9 (3.5-5.0) g/dL Amylase (30-110) U/L Lipase (23-300) U/L Urine Color (YELLOW) Urine Appearance (CLEAR) Urine pH (5-6) Ur Specific [place] (1.005-1.025) Urine Protein (Negative) Urine Ketones (NEGATIVE) Urine Blood (0-5) Justin/ul Urine Nitrite (NEGATIVE) Urine Bilirubin (NEGATIVE) Urine Urobilinogen (0-1) mg/dL Ur Leukocyte Esterase (NEGATIVE) Urine WBC (Auto) (0-5) /HPF Urine RBC (Auto) (0-2) /HPF U Epithel Cells (Auto) (FEW) /HPF Urine Bacteria (Auto) (NEGATIVE) /HPF Unidentified Crystals (NEGATIVE) /HPF Urine Culture Reflexed (NO) Urine Glucose (NEGATIVE) mg/dL Micro Results-Entire Visit: Accuchecks Date 02/28/20 Time 02:30 Accucheck Value: 185 Accucheck Value: 145 Accucheck Value: 135 - Radiology Exams Ordered Rad Exams-Entire Visit: Radiology Procedures Category Date Time Status ABDOMEN AND PELVIS W/0 CONTRAS [CT] Stat Exams 02/27/20 22:05 Completed - Discharge Disposition: Home, Self-Care Condition: Good Prescriptions: New Cefdinir 300 mg PO BID #10 capsule Continue Lorazepam 1 mg [Ativan 1 MG] 0.5 mg PO HS Levothyroxine Sodium 125 Mcg [Synthroid 125 Mcg] 88 mcg PO DAILY Gabapentin 300 mg [Neurontin 300 mg] 400 mg PO BID Digoxin 0.125 mg Tablet [Lanoxin 0.125MG TABLET] 0.125 mg PO UD Bupropion HCl Xl 150 mg [Wellbutrin XL 150 MG] 150 mg PO DAILY Metoprolol Tartrate 25 mg [Lopressor 25MG Tab] 25 mg PO BID Warfarin Sodium 5 mg [Coumadin 5 MG] 6 mg PO HS Insulin Glargine,Hum.rec.anlog [Toujeo Solostar] 16 units SQ HS Insulin Aspart [Novolog Flexpen] 10 units SQ TIDWM Polyethylene Glycol 3350 17 gm [Miralax Powder 17GM PACKET] 17 gm PO DAILY Atorvastatin Calcium 20 mg PO DAILY lisinopriL [Lisinopril] 10 mg PO BID Donepezil HCl 5 mg PO BID Follow up with: TRENA BAILEY [Primary Care Provider] - 03/07/20 11:15 am
[2020-02-28] MEDS ORDERED: Coumadin 3 MG PO SCH (18:00)
[2020-02-28] MEDS ORDERED: Ativan 1 MG PO SCH (22:00)
[2020-02-28] MEDS ORDERED: NEURONTIN 300 MG PO SCH (22:00)
[2020-02-28] MEDS ORDERED: ZOCOR 20MG PO SCH (22:00)
[2020-02-28] MEDS ORDERED: Ativan 0.5 MG PO SCH (22:00)
[2020-02-28] MEDS ORDERED: Lantus Insulin SQ SCH (22:00)
[2020-02-28] MEDS ORDERED: ROCEPHIN 1 Gm-D5w 50 ml Bag** 1 G/50 ML IVPB IV SCH (22:00)
[2020-02-28] MEDS ORDERED: Coumadin 5 MG PO SCH (22:00)
[2020-02-28] MEDS ORDERED: INSULIN GLARGINE HUM REC ANLOG 16 UNIT SQ SCH (22:00)
[2020-02-29] MEDS ORDERED: SYNTHROID 125 MCG PO SCH (10:00)
[2020-02-29] MEDS ORDERED: Lanoxin 0.125MG TABLET PO SCH (10:00)
[2020-02-29] MEDS ORDERED: NON-FORMULARY ITEM (Atorvastatin Calcium [Atorvastatin Calcium] 20 MG) PO SCH (10:00)
== END 2020-02-28 15:00 | disposition home or self-care (01) ==
LOC: ED 20:35 → MED SURG 02-28 00:27
PROVIDERS: ADMIT Family Medicine; ATTEND Family Medicine
DX: K59.00 Constipation, unspecified (principal); N39.0 Urinary tract infection, site not specified; E03.9 Hypothyroidism, unspecified; I12.9 Hypertensive chronic kidney disease with stage 1 through stage 4 chronic kidney disease, or unspecified chronic kidney disease; E11.22 Type 2 diabetes mellitus with diabetic chronic kidney disease; N18.3 Chronic kidney disease, stage 3 (moderate); G30.9 Alzheimer's disease, unspecified; F02.80 Dementia in other diseases classified elsewhere, unspecified severity, without behavioral disturbance, psychotic disturbance, mood disturbance, and anxiety; Z79.01 Long term (current) use of anticoagulants; Z79.899 Other long term (current) drug therapy; Z79.4 Long term (current) use of insulin; Z86.718 Personal history of other venous thrombosis and embolism
CPT/HCPCS: 36000; 36415; 74176; 80053; 81001; 82150; 82962; 83690; 85025; 85610; 85730; 87040; 87086; 93268; 99285; J0696; J1817; A9270-GY; G0378

== ENCOUNTER 2020-05-16 03:03 | Emergency (ER) | payer MEDICARE, OTHER ==
[2020-05-16 04:18] LABS: BASOPHIL % 0.3 % (0.0-0.4); Basophil (Absolute #) 0.03 (0-0.4); Eosinophil % 4.7 % (0.00-5.0); Eosinophil (Absolute #) 0.47 (0-0.5); Hemoglobin 11.9 gm/dl (12.0-16.0); Lymphocyte (Absolute #) 2.92 (1.0-4.6); Mean Cell Volume 91.1 fl (78-100); Mean Corpuscular Hemoglobin 29.3 pg (26-32); Mean Corpuscular Hgb Concent. 32.2 g/dl (32-36); Mean Platelet Volume 11.8 fl (7.5-11.0); Monocyte (Absolute #) 0.74 (0.0-1.3); Monocytes % 7.4 % (0.0-12.0); Neutrophil % 58.6 % (36.0-66.0); Platelet Count 214 K/mm3 (150-450); Red Blood Count 4.06 M/mm3 (4.1-5.4); White Blood Count 10.1 K/mm3 (4.0-10.5)
[2020-05-16 04:31] LABS: PTT 39.9 SECONDS (25.3-37.0)
[2020-05-16 04:32] LABS: ALBUMIN 4.7 g/dL (3.5-5.0); BILIRUBIN,TOTAL 0.5 mg/dL (0.2-1.3); Calcium 10.1 mg/dL (8.4-10.2); Creatinine 1 2.07 mg/dL (0.52-1.04); EST GLOMERULAR FILTRATION RATE 24.5 ML/MIN; Potassium 4.5 mmol/L (3.5-5.1); Total Protein 7.9 g/dL (6.3-8.2)
[2020-05-16 04:33] LABS: PROTIME 32.5 SECONDS (9.95-12.35)
[2020-05-16 04:34] LABS: INR 2.85 (0.8-3.0)
--- NOTE | 2020-05-16 04:52 | ERPHSYRPT ---
- History of Present Illness Time Seen by Provider: 05/16/20 03:10 Source: patient Exam Limitations: no limitations Patient Subjective Stated Complaint: pt fell at home and hit her head Triage Nursing Assessment: pt was in the bathroom at home taking her nightgown off and fell forward hitting her head, did not lose consciousness. Pt has laceration to posterior upper head approx 5.0 cm x 0.5 cm x 0.1 cm. Pt has golf ball sized edema to area. Physician History: Patient is a 79-year-old female who presents to our ED for evaluation of a scalp laceration. Patient was at home removing her gown when a gown was over pasquale cordon's head she lost her balance and fell. Patient struck the back of her head no loss of consciousness. Patient is on Coumadin. No neck pain. Cervical spine cleared clinically. Pain described as an ache that is well localized. No radiation. No numbness tingling or weakness. No blurred vision. No nausea or vomiting. Symptoms are mild to moderate in intensity. Patient voices no other complaints or concerns at this time. Occurred: just prior to arrival Severity: moderate Head Injury Location: parietal Method of Injury: fell Loss of Consciousness: no loss of consciousness Associated Symptoms: No nausea, No vomiting, No shortness of breath, No heartburn, No diaphoresis, No cough, No headaches, No syncope, No weakness Allergies/Adverse Reactions: nalidixic acid [From NegGram] Allergy (Severe, Verified 05/16/20 03:28) Hives nitrofurantoin macrocrystalline [From Macrodantin] Allergy (Severe, Verified 03:28) Hives Eyes swelled shut oxytetracycline HCl [From Terramycin] Allergy (Severe, Verified 05/16/20 03:28) Nausea and Vomiting oxytetracycline [From Terramycin] Allergy (Verified 05/16/20 03:28) makes pt go crazy codeine [Codeine] Adverse Reaction (Intermediate, Verified 05/16/20 03:28) Pt states it makes her "climb the dasilva" Home Medications: Bupropion HCl Xl 150 mg [Wellbutrin XL 150 MG] 300 mg PO DAILY 01/08/13 [History] Digoxin 0.125 mg Tablet [Lanoxin 0.125MG TABLET] 0.125 mg PO UD 01/08/13 [History] Gabapentin 300 mg [Neurontin 300 mg] 400 mg PO BID 01/08/13 [History] Levothyroxine Sodium 125 Mcg [Synthroid 125 Mcg] 88 mcg PO DAILY 01/08/13 [History] Lorazepam 1 mg [Ativan 1 MG] 0.5 mg PO HS 01/08/13 [History] Metoprolol Tartrate 25 mg [Lopressor 25MG Tab] 25 mg PO BID 10/01/14 [History] Atorvastatin Calcium 20 mg PO DAILY 01/07/18 [History] Insulin Aspart [Novolog Flexpen] 10 units SQ TIDWM 01/07/18 [History] Insulin Glargine,Hum.rec.anlog [Toujeo Solostar] 16 units SQ HS 01/07/18 [History] Polyethylene Glycol 3350 17 gm [Miralax Powder 17GM PACKET] 17 gm PO DAILY 01/07/18 [History] lisinopriL [Lisinopril] 10 mg PO BID 01/07/18 [History] Donepezil HCl 5 mg PO BID 08/24/19 [History] Warfarin Sodium 6 mg PO DAILY 05/16/20 [History] Hx Tetanus, Diphtheria Vaccination/Date Given: No Hx Influenza Vaccination/Date Given: Yes Hx Pneumococcal Vaccination/Date Given: Yes Immunizations Up to Date: No Travel Risk - International Travel Have you traveled outside of the country in past 3 weeks: No (N) If Yes, where;: N - Coronavirus Screening Are you exhibiting any of the following symptoms?: No Close contact with a COVID-19 positive Pt in past 14-21 Days: No - Review of Systems Constitutional: No Symptoms, No Fever, No Chills Eyes: No Symptoms Ears, Nose, & Throat: No Symptoms Respiratory: No Symptoms, No Cough, No Dyspnea Cardiac: No Symptoms, No Chest Pain, No Edema, No Syncope Abdominal/Gastrointestinal: No Symptoms, No Abdominal Pain, No Nausea, No Vomiting, No Diarrhea Genitourinary Symptoms: No Symptoms, No Dysuria Musculoskeletal: No Symptoms, No Back Pain, No Neck Pain Skin: No Symptoms, No Rash Neurological: No Symptoms, No Dizziness, No Focal Weakness, No Sensory Changes Psychological: No Symptoms Endocrine: No Symptoms Hematologic/Lymphatic: No Symptoms Immunological/Allergic: No Symptoms All Other Systems: Reviewed and Negative - Past Medical History Pertinent Past Medical History: Yes Neurological History: Stroke ENT History: Cataracts Cardiac History: Arrhythmia, Deep Vein Thrombosis, Hypertension, Other Respiratory History: No Pertinent History Endocrine Medical History: Diabetes Type II, Hypothyroidism Musculoskeletal History: Arthritis GI Medical History: No Pertinent History History: No Pertinent History Psycho-Social History: Anxiety Female Reproductive Disorders: No Pertinent History - Past Surgical History Past Surgical History: Yes Neuro Surgical History: No Pertinent History Cardiac: Pacemaker, Valve Replacement Respiratory: No Pertinent History Gastrointestinal: Appendectomy, Cholecystectomy Genitourinary: No Pertinent History Musculoskeletal: No Pertinent History Female Surgical History: Hysterectomy Other Surgical History: THYROID REMOVED, LEFT CARPAL TUNNEL. cyst ovary. Bladder Surgery 1974 - Social History Smoking Status: Never smoker Exposure to second hand smoke: Yes Alcohol Use: None Drug Use: none Patient Lives Alone: No Significant Family History: no pertinent family hx - Female History Hx Now: No - Nursing Vital Signs Nursing Vital Signs: Initial Vital Signs Temperature 98.0 F 05/16/20 03:09 Pulse Rate 87 05/16/20 03:09 Respiratory Rate 20 05/16/20 03:09 Blood Pressure 148/85 05/16/20 03:09 O2 Sat by Pulse Oximetry 96 05/16/20 03:09 Pain Scale Pain Intensity 4 - Alejandra Coma Score Best Eye Response (Alejandra): (4) open spontaneously Best Verbal Response ([place]): (5) oriented Best Motor Response ([place]): (6) obeys commands Alejandra Total: 15 - Physical Exam General Appearance: no apparent distress, alert Eye Exam: bilateral eye: normal inspection, PERRL, EOMI ENT Exam: airway nml, No evidence of ENT injury, No dental injury, No nml ext.inspection, No clear fluid (ears), No clear fluid (nose), No midface instability, No decreased hearing, No hemotympanum, No hearing grossly normal Neck Exam: supple, trachea midline, full range of motion, normal alignment, normal inspection, No focal neuro deficit, No limited range of motion, No stiff neck, No tenderness, No tender lateral, No mid-line tenderness Cardiovascular/Respiratory Exam: chest non-tender, normal breath sounds, regular rate/rhythm, heart sounds normal Gastrointestinal/Abdominal Exam: soft, non tender, no distention Back Exam: normal inspection, No vertebral tenderness Extremity Exam: non-tender, normal range of motion, normal inspection Mental Status Exam: alert, oriented x 3, cooperative 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), No rash Lymphatic Exam: No adenopathy SpO2 Interpretation: normal SpO2: 98 O2 Delivery: Room Air Procedures - Laceration/Wound Repair Posterior Parietal Wound Length (cm): 5 Wound's Depth, Shape: superficial Wound Explored: no foreign body noted Irrigated: Yes Hibiclens Prep: Yes Wound Debrided: Debridement necessary Wound Repaired With: [place] Number of Sutures: 8 Layer Closure?: No Sterile Dressing Applied?: Yes Splint Applied?: No Sling Applied?: No - Course Nursing assessment & vital signs reviewed: Yes EKG Interpreted by Me: RATE (64), Other (Ventricular paced rhythm.) - CT Exams Head CT Interpretation: Tele-radiologist Report (Multiple old bilateral infarcts, cerebral atrophy, no acute intracranial hemorrhage or infarct, extracranial soft tissue swelling in the right parietal area) Ordered Tests: Active Orders 24 hr Category Date Time Status Plant Pathology Teacher STAT Care 05/16/20 03:40 Active EKG-ER Only STAT Care 05/16/20 03:39 Active IV Insertion STAT Care 05/16/20 03:39 Active Pulse Oximetry (ED) STAT Care 05/16/20 03:39 Active HEAD WITHOUT CONTRAST [CT] Stat Exams 05/16/20 03:30 Taken CBC W DIFF Stat Lab 05/16/20 Completed CMP Stat Lab 05/16/20 Completed CULTURE,URINE Stat Lab 05/16/20 04:45 Received PROTIME WITH INR Stat Lab 05/16/20 Completed PTT Stat Lab 05/16/20 Completed TROPONIN Q3H Lab 05/16/20 Completed TROPONIN Q3H Lab 05/16/20 Completed TROPONIN Q3H Lab 05/16/20 09:45 Ordered TROPONIN Q3H Lab 05/16/20 12:45 Ordered UA W/RFX UR CULTURE Stat Lab 05/16/20 04:45 Completed Medication Summary Discontinued Medications Generic Name Dose Route Start Last Admin Trade Name Janene PRN Reason Stop Dose Admin Acetaminophen 975 mg 05/16/20 05:19 05/16/20 05:30 Tylenol 325 Mg PO 05/16/20 05:20 975 mg STAT ONE Administration Acetaminophen Confirm 05/16/20 05:29 Tylenol 325 Mg Administered 05/16/20 05:30 Dose 975 mg .ROUTE .STK-MED ONE Cephalexin HCl 500 mg 05/16/20 05:27 05/16/20 05:30 Keflex 500 Mg PO 05/16/20 05:28 500 mg STAT ONE Administration Cephalexin HCl Confirm 05/16/20 05:29 Keflex 500 Mg Administered 05/16/20 05:30 Dose 500 mg .ROUTE .STK-MED ONE Lab/Rad Data: Laboratory Result Diagrams 05/16/20 Unknown 05/16/20 Unknown Laboratory Results 05/16/20 05/16/20 05/16/20 Range/Units Unknown Unknown Unknown WBC (4.0-10.5) K/mm3 RBC (4.1-5.4) M/mm3 Hgb (12.0-16.0) gm/dl Hct (35-47) % MCV (78-100) fl MCH (26-32) pg MCHC (32-36) g/dl RDW (11.5-14.0) % Plt Count (150-450) K/mm3 MPV (7.5-11.0) fl Gran % (36.0-66.0) % Eos # (Auto) (0-0.5) Absolute Lymphs (auto) (1.0-4.6) Absolute Monos (auto) (0.0-1.3) Lymphocytes % (24.0-44.0) % Monocytes % (0.0-12.0) % Eosinophils % (0.00-5.0) % Basophils % (0.0-0.4) % Absolute Granulocytes (1.4-6.9) Basophils # (0-0.4) PT 32.5 H (9.95-12.35) SECONDS INR 2.85 (0.8-3.0) APTT 39.9 H (25.3-37.0) SECONDS Sodium (137-145) mmol/L Potassium (3.5-5.1) mmol/L Chloride (98-107) mmol/L Carbon Dioxide (22-30) mmol/L Anion Gap (5-15) MEQ/L BUN (7-17) mg/dL Creatinine (0.52-1.04) mg/dL Estimated GFR ML/MIN Glucose (74-106) mg/dL Calcium (8.4-10.2) mg/dL Total Bilirubin (0.2-1.3) mg/dL AST (14-36) U/L ALT (0-35) U/L Alkaline Phosphatase (38-126) U/L Troponin I 0.015 0.025 (0.000-0.034) ng/mL Serum Total Protein (6.3-8.2) g/dL Albumin (3.5-5.0) g/dL Urine Color (YELLOW) Urine Appearance (CLEAR) Urine pH (5-6) Ur Specific [place] (1.005-1.025) Urine Protein (Negative) Urine Ketones (NEGATIVE) Urine Blood (0-5) Justin/ul Urine Nitrite (NEGATIVE) Urine Bilirubin (NEGATIVE) Urine Urobilinogen (0-1) mg/dL Ur Leukocyte Esterase (NEGATIVE) Urine WBC (Auto) (0-5) /HPF Urine RBC (Auto) (0-2) /HPF U Epithel Cells (Auto) (FEW) /HPF Urine Bacteria (Auto) (NEGATIVE) /HPF Urine Culture Reflexed (NO) Urine Glucose (NEGATIVE) mg/dL Digoxin (0.8-1.9) ng/mL 05/16/20 05/16/20 05/16/20 Range/Units Unknown Unknown 06:20 WBC 10.1 (4.0-10.5) K/mm3 RBC 4.06 L (4.1-5.4) M/mm3 Hgb 11.9 L (12.0-16.0) gm/dl Hct 37.0 (35-47) % MCV 91.1 (78-100) fl MCH 29.3 (26-32) pg MCHC 32.2 (32-36) g/dl RDW 14.0 (11.5-14.0) % Plt Count 214 (150-450) K/mm3 MPV 11.8 H (7.5-11.0) fl Gran % 58.6 (36.0-66.0) % Eos # (Auto) 0.47 (0-0.5) Absolute Lymphs (auto) 2.92 (1.0-4.6) Absolute Monos (auto) 0.74 (0.0-1.3) Lymphocytes % 29.0 (24.0-44.0) % Monocytes % 7.4 (0.0-12.0) % Eosinophils % 4.7 (0.00-5.0) % Basophils % 0.3 (0.0-0.4) % Absolute Granulocytes 5.90 (1.4-6.9) Basophils # 0.03 (0-0.4) PT (9.95-12.35) SECONDS INR (0.8-3.0) APTT (25.3-37.0) SECONDS Sodium 137 (137-145) mmol/L Potassium 4.5 (3.5-5.1) mmol/L Chloride 104 (98-107) mmol/L Carbon Dioxide 25 (22-30) mmol/L Anion Gap 13.0 (5-15) MEQ/L BUN 55 H (7-17) mg/dL Creatinine 2.07 H (0.52-1.04) mg/dL Estimated GFR 24.5 ML/MIN Glucose 109 H (74-106) mg/dL Calcium 10.1 (8.4-10.2) mg/dL Total Bilirubin 0.50 (0.2-1.3) mg/dL AST 35 (14-36) U/L ALT 19 (0-35) U/L Alkaline Phosphatase 99 (38-126) U/L Troponin I (0.000-0.034) ng/mL Serum Total Protein 7.9 (6.3-8.2) g/dL Albumin 4.7 (3.5-5.0) g/dL Urine Color (YELLOW) Urine Appearance (CLEAR) Urine pH (5-6) Ur Specific [place] (1.005-1.025) Urine Protein (Negative) Urine Ketones (NEGATIVE) Urine Blood (0-5) Justin/ul Urine Nitrite (NEGATIVE) Urine Bilirubin (NEGATIVE) Urine Urobilinogen (0-1) mg/dL Ur Leukocyte Esterase (NEGATIVE) Urine WBC (Auto) (0-5) /HPF Urine RBC (Auto) (0-2) /HPF U Epithel Cells (Auto) (FEW) /HPF Urine Bacteria (Auto) (NEGATIVE) /HPF Urine Culture Reflexed (NO) Urine Glucose (NEGATIVE) mg/dL Digoxin 0.7 L (0.8-1.9) ng/mL 05/16/20 Range/Units 04:45 WBC (4.0-10.5) K/mm3 RBC (4.1-5.4) M/mm3 Hgb (12.0-16.0) gm/dl Hct (35-47) % MCV (78-100) fl MCH (26-32) pg MCHC (32-36) g/dl RDW (11.5-14.0) % Plt Count (150-450) K/mm3 MPV (7.5-11.0) fl Gran % (36.0-66.0) % Eos # (Auto) (0-0.5) Absolute Lymphs (auto) (1.0-4.6) Absolute Monos (auto) (0.0-1.3) Lymphocytes % (24.0-44.0) % Monocytes % (0.0-12.0) % Eosinophils % (0.00-5.0) % Basophils % (0.0-0.4) % Absolute Granulocytes (1.4-6.9) Basophils # (0-0.4) PT (9.95-12.35) SECONDS INR (0.8-3.0) APTT (25.3-37.0) SECONDS Sodium (137-145) mmol/L Potassium (3.5-5.1) mmol/L Chloride (98-107) mmol/L Carbon Dioxide (22-30) mmol/L Anion Gap (5-15) MEQ/L BUN (7-17) mg/dL Creatinine (0.52-1.04) mg/dL Estimated GFR ML/MIN Glucose (74-106) mg/dL Calcium (8.4-10.2) mg/dL Total Bilirubin (0.2-1.3) mg/dL AST (14-36) U/L ALT (0-35) U/L Alkaline Phosphatase (38-126) U/L Troponin I (0.000-0.034) ng/mL Serum Total Protein (6.3-8.2) g/dL Albumin (3.5-5.0) g/dL Urine Color YELLOW (YELLOW) Urine Appearance CLOUDY (CLEAR) Urine pH 5.0 (5-6) Ur Specific [place] 1.013 (1.005-1.025) Urine Protein 30 (Negative) Urine Ketones NEGATIVE (NEGATIVE) Urine Blood SMALL (0-5) Justin/ul Urine Nitrite NEGATIVE (NEGATIVE) Urine Bilirubin NEGATIVE (NEGATIVE) Urine Urobilinogen NEGATIVE (0-1) mg/dL Ur Leukocyte Esterase LARGE (NEGATIVE) Urine WBC (Auto) >100 (0-5) /HPF Urine RBC (Auto) 3-5 (0-2) /HPF U Epithel Cells (Auto) NONE (FEW) /HPF Urine Bacteria (Auto) NONE (NEGATIVE) /HPF Urine Culture Reflexed YES (NO) Urine Glucose NEGATIVE (NEGATIVE) mg/dL Digoxin (0.8-1.9) ng/mL - Progress Progress: improved Progress Note: 05/16/20 06:59 Patient reassessed. Troponin negative. CT head negative for acute pathology. Laceration repaired with 8 etelvina. Patient requesting discharge. Patient agrees to follow-up with her primary care doctor within 48 hours for reevaluation. Counseled pt/family regarding: lab results, diagnosis, need for follow-up, rad results - Departure Departure Disposition: Home Clinical Impression: Fall, Scalp laceration, Chronic renal insufficiency, Alondra bullosa, UTI (urinary tract infection) Condition: Stable Critical Care Time: No Referrals: TRENA BAIRD [Primary Care Provider] - Additional Instructions: Discharge/Care Plan MARIO ARCHER was seen on 05/16/20 in the Emergency Room. The patient was counseled regarding Diagnosis,Lab results, Imaging studies, need for follow up and when to return to the Emergency Room. Prescriptions given: Discharge Note I have spoken with the patient and/or caregivers. I have explained the patient's condition, diagnosis and treatment plan based on the information available to me at this time. I have answered the patient's and/or caregiver's questions and addressed any concerns. The patient and/or caregivers have as good understanding of the patient's diagnosis, condition and treatment plan as can be expected at this point. The vital signs have been stable. The patient's condition is stable and appropriate for discharge from the emergency department. The patient will pursue further outpatient evaluation with the primary care physician or other designated or consulting physician as outlined in the discharge instructions. The patient and/or caregivers are agreeable to this plan of care and follow-up instructions have been explained in detail. The patient and/or caregivers have received these instruction. The patient/and or caregivers are aware that any significant change in condition or worsening of symptoms should prompt an immediate return to this or the closest emergency department or call 911. Prescriptions: Cephalexin Mh 500 mg [Keflex 500 mg] 500 mg PO TID 5 Days #15 capsule
[2020-05-16 05:01] LABS: Appearance CLOUDY (CLEAR); Bilirubin NEGATIVE (NEGATIVE); Blood SMALL Ery/ul (0-5); Glucose NEGATIVE (NEGATIVE); Ketones NEGATIVE (NEGATIVE); Leukocyte Esterase LARGE (NEGATIVE); Nitrite NEGATIVE (NEGATIVE); Protein,Urine Dip 30 (Negative); Specific Gravity 1.013 (1.005-1.025); Urobilinogen NEGATIVE mg/dL (0-1); WBC >100 /HPF (0-5)
[2020-05-16] MEDS ORDERED: TYLENOL 325 MG PO ONE (05:19)
[2020-05-16] MEDS ORDERED: KEFLEX 500 MG PO ONE (05:27)
[2020-05-16] MEDS ORDERED: KEFLEX 500 MG ONE (05:29)
[2020-05-16] MEDS ORDERED: TYLENOL 325 MG ONE (05:29)
[2020-05-16 07:46] VITALS: BP 137/61; PULSE 61; O2SAT 97
--- NOTE | 2020-05-16 13:52 | XRAY ---
Exam: CT of the head without IV contrast from 05/16/2020. CTDI: 53.92 mGy Comparison: CT of the head without IV contrast from 07/16/2017. Indication: 79-year-old female with fall and right-sided "knots/laceration" on top of the head Technique: Non-IV contrast axial images were obtained through the brain. Reconstructed coronal and sagittal images were created and reviewed. Findings: I again see evidence of moderate generalized global atrophy with some enlargement of the ventricles and moderate diffuse prominence of the cortical sulci. No focal mass effect or midline shift is seen. No acute intracranial bleed or abnormal extra-axial fluid collection is seen. I again see some subtle decreased attenuation within the left [place] radiata on axial images #42 through #44 consistent with an old lacunar infarct. There is also a lateral basal ganglia lacunar infarct on the left on axial images #33 and #34 representing no significant change. I believe there are also couple subtle lacunar infarcts within the right thalamus on axial images #34 and #35. Other mild bilateral periventricular and subcortical white matter changes are seen consistent with chronic microvascular disease. No new dominant cortical infarct is seen. The calvarium of the skull appears intact. There is a mild/moderate scalp hematoma within the upper posterior right parietal area with small extracranial soft tissue air bubbles, perhaps due to the laceration at this site. I see no fracture underlying this region. The patient is status post bilateral intraocular lens replacement surgeries. Vascular calcification is seen within both carotid siphons. The paranasal sinuses are clear without air-fluid levels. The mastoid air cells are clear without effusion. Impression: 1. I see no acute intracranial bleed. 2. There is a focal extracranial scalp hematoma within the high posterior right parietal region. No underlying fracture of the calvarium of the skull is seen. 3. Moderate generalized global atrophy, scattered bilateral periventricular and subcortical chronic microvascular disease, and a few stable small bilateral lacunar infarcts are seen. A new cortical infarct within a major cerebral or cerebellar artery distribution is not seen.
== END 2020-05-16 07:48 | disposition home or self-care (01) ==
LOC: ED 03:03
DX: S01.01XA Laceration without foreign body of scalp, initial encounter (principal); W01.198A Fall on same level from slipping, tripping and stumbling with subsequent striking against other object, initial encounter; Y93.89 Activity, other specified; Y92.002 Bathroom of unspecified non-institutional (private) residence as the place of occurrence of the external cause; Z79.01 Long term (current) use of anticoagulants; I10 Essential (primary) hypertension; Z79.899 Other long term (current) drug therapy; Z86.718 Personal history of other venous thrombosis and embolism; E11.9 Type 2 diabetes mellitus without complications; E03.9 Hypothyroidism, unspecified; F41.9 Anxiety disorder, unspecified
CPT/HCPCS: 12002; 36000; 36415; 70450; 80053; 80162; 81001; 84484; 85025; 85610; 85730; 87077; 87086; 87186; 93005; 93041; 94760; 99284; A9270-GY

== ENCOUNTER 2020-11-14 16:28 | Emergency (ER) | payer MEDICARE, OTHER ==
[2020-11-14] MEDS ORDERED: Sodium Chloride 0.9% 1000 ML 1,000 ML IV STA ×2 (17:09→19:39)
[2020-11-14] MEDS ORDERED: Sodium Chloride 0.9% 1000 ML 1,000 ML ONE ×2 (17:18→19:00)
[2020-11-14 17:24] LABS: BASOPHIL % 0.2 % (0.0-0.4); Basophil (Absolute #) 0.02 (0-0.4); Eosinophil % 3.6 % (0.00-5.0); Eosinophil (Absolute #) 0.29 (0-0.5); Hematocrit 32.1 % (35-47); Hemoglobin 10.2 gm/dl (12.0-16.0); Lymphocyte (Absolute #) 2.33 (1.0-4.6); Lymphocytes % 28.8 % (24.0-44.0); Mean Cell Volume 90.7 fl (78-100); Mean Corpuscular Hemoglobin 28.8 pg (26-32); Mean Corpuscular Hgb Concent. 31.8 g/dl (32-36); Mean Platelet Volume 10.4 fl (7.5-11.0); Monocyte (Absolute #) 0.65 (0.0-1.3); Neutrophil % 59.4 % (36.0-66.0); Platelet Count 279 K/mm3 (150-450); Red Blood Count 3.54 M/mm3 (4.1-5.4); Red Cell Distribution Width 15.5 % (11.5-14.0); White Blood Count 8.1 K/mm3 (4.0-10.5)
[2020-11-14 17:34] LABS: ALBUMIN 4.2 g/dL (3.5-5.0); ANION GAP 15.3 MEQ/L (5-15); BILIRUBIN,TOTAL 0.2 mg/dL (0.2-1.3); Calcium 9.5 mg/dL (8.4-10.2); Creatinine 1 2.92 mg/dL (0.52-1.04); EST GLOMERULAR FILTRATION RATE 16.4 ML/MIN; Potassium 5.1 mmol/L (3.5-5.1); Total Protein 7.2 g/dL (6.3-8.2)
[2020-11-14 18:07] LABS: Appearance TURBID (CLEAR); Bacteria MODERATE /HPF (NEGATIVE); Bilirubin NEGATIVE (NEGATIVE); Blood NEGATIVE Ery/ul (0-5); Epithelial Cells FEW /HPF (FEW); Glucose NEGATIVE (NEGATIVE); Hyaline Casts 26-50 /LPF (0-2); Ketones NEGATIVE (NEGATIVE); Leukocyte Esterase MODERATE (NEGATIVE); Nitrite NEGATIVE (NEGATIVE); Protein,Urine Dip 100 (Negative); Specific Gravity 1.014 (1.005-1.025); Urobilinogen 2 mg/dL (0-1); WBC >100 /HPF (0-5)
[2020-11-14 19:06] VITALS: O2SAT 100
[2020-11-14 19:27] LABS: ANION GAP 13.9 MEQ/L (5-15); Calcium 8.8 mg/dL (8.4-10.2); Creatinine 1 2.73 mg/dL (0.52-1.04); EST GLOMERULAR FILTRATION RATE 17.7 ML/MIN
[2020-11-14] MEDS ORDERED: ROCEPHIN 1 Gm-D5w 50 ml Bag** 1 G/50 ML IVPB IV STA (19:34)
--- NOTE | 2020-11-14 19:34 | ERPHSYRPT ---
- History of Present Illness Time Seen by Provider: 11/14/20 16:45 Source: patient Exam Limitations: no limitations Patient Subjective Stated Complaint: Abnormal labs Triage Nursing Assessment: Patient brought back to ED via w/c and transferred self to bed. Patient A+O X3. Patient's skin pink, warm and dry. Patient had labs drawn earlier today at hospital for Dr. Leavitt and was told to come to ED for eval due to abnormal lab work. Patient states she's not sure why she is at ER. Patient denies pain or discomfort. Patient's lungs clear a/p kendrick. This nurse spoke with Dr. Leavitt's office and was told patient's CO2 was critical and her GFR had dropped 20 points so she was instructed to come to ED for eval. Physician History: Malik is an 80-year-old white female who is followed by Dr. Baird and by her wireless technician Dr. Mccloud. She has had no recent illness she has had no nausea vomiting diarrhea no change in her medicines and she has no pain. She apparently had labs drawn here at [facility] at Dr. Kuhn's order to check her kidney function and it had markedly deteriorated since September of this year. September 22, 2020 her BUN was 24 creatinine was 1.39 and her GFR was 38.7 initial labs today showed a BUN of 73 a creatinine of 2.75 and a GFR of 17.6. She was contacted by Dr. Kuhn's office and told to come to the ER. She denies any discomfort or problems. She states she does not know why she is here. Timing/Duration: today Severity: moderate Modifying Factors: Improves With: nothing Associated Symptoms: denies symptoms Allergies/Adverse Reactions: nalidixic acid [From NegGram] Allergy (Severe, Verified 11/14/20 16:36) Hives nitrofurantoin macrocrystalline [From Macrodantin] Allergy (Severe, Verified 11/14/20 16:36) Hives Eyes swelled shut oxytetracycline HCl [From Terramycin] Allergy (Severe, Verified 11/14/20 16:36) Nausea and Vomiting oxytetracycline [From Terramycin] Allergy (Verified 11/14/20 16:36) makes pt go crazy codeine [Codeine] Adverse Reaction (Intermediate, Verified 11/14/20 16:36) Pt states it makes her "climb the dasilva" Home Medications: Bupropion HCl Xl 150 mg [Wellbutrin XL 150 MG] 300 mg PO DAILY 01/08/13 [History] Digoxin 0.125 mg Tablet [Lanoxin 0.125MG TABLET] 0.125 mg PO UD 01/08/13 [History] Gabapentin 300 mg [Neurontin 300 mg] 400 mg PO BID 01/08/13 [History] Levothyroxine Sodium 125 Mcg [Synthroid 125 Mcg] 88 mcg PO DAILY 01/08/13 [History] Lorazepam 1 mg [Ativan 1 MG] 0.5 mg PO HS 01/08/13 [History] Metoprolol Tartrate 25 mg [Lopressor 25MG Tab] 25 mg PO BID 10/01/14 [History] Atorvastatin Calcium 20 mg PO DAILY 01/07/18 [History] Insulin Aspart [Novolog Flexpen] 10 units SQ TIDWM 01/07/18 [History] Insulin Glargine,Hum.rec.anlog [Toujeo Solostar] 16 units SQ HS 01/07/18 [History] Polyethylene Glycol 3350 17 gm [Miralax Powder 17GM PACKET] 17 gm PO DAILY 01/07/18 [History] lisinopriL [Lisinopril] 10 mg PO BID 01/07/18 [History] Donepezil HCl 5 mg PO BID 08/24/19 [History] Warfarin Sodium 6 mg PO DAILY 05/16/20 [History] Hx Tetanus, Diphtheria Vaccination/Date Given: No Hx Influenza Vaccination/Date Given: Yes Hx Pneumococcal Vaccination/Date Given: Yes Immunizations Up to Date: Yes Travel Risk - International Travel Have you traveled outside of the country in past 3 weeks: No - Coronavirus Screening Are you exhibiting any of the following symptoms?: No Close contact with a COVID-19 positive Pt in past 14-21 Days: No - Review of Systems Constitutional: No Fever, No Chills Eyes: No Symptoms Ears, Nose, & Throat: No Symptoms Respiratory: No Cough, No Dyspnea Cardiac: No Chest Pain, No Edema, No Syncope Abdominal/Gastrointestinal: No Abdominal Pain, No Nausea, No Vomiting, No Diarrhea Genitourinary Symptoms: No Dysuria Musculoskeletal: No Back Pain, No Neck Pain Skin: No Rash Neurological: No Dizziness, No Focal Weakness, No Sensory Changes Psychological: No Symptoms Endocrine: No Symptoms All Other Systems: Reviewed and Negative - Past Medical History Pertinent Past Medical History: Yes Neurological History: Stroke ENT History: Cataracts Cardiac History: Arrhythmia, Deep Vein Thrombosis, Hypertension, Other Respiratory History: No Pertinent History Endocrine Medical History: Diabetes Type II, Hypothyroidism Musculoskeletal History: Arthritis GI Medical History: No Pertinent History History: No Pertinent History Psycho-Social History: Anxiety Female Reproductive Disorders: No Pertinent History - Past Surgical History Past Surgical History: Yes Neuro Surgical History: No Pertinent History Cardiac: Pacemaker, Valve Replacement Respiratory: No Pertinent History Gastrointestinal: Appendectomy, Cholecystectomy Genitourinary: No Pertinent History Musculoskeletal: No Pertinent History Female Surgical History: Hysterectomy Other Surgical History: THYROID REMOVED, LEFT CARPAL TUNNEL. cyst ovary. Bladder Surgery 1974 - Social History Smoking Status: Never smoker Exposure to second hand smoke: Yes Alcohol Use: None Drug Use: none Patient Lives Alone: No Significant Family History: no pertinent family hx - Female History Hx Now: No - Nursing Vital Signs Nursing Vital Signs: Initial Vital Signs Temperature 97.7 F 11/14/20 16:37 Pulse Rate 88 11/14/20 16:37 Respiratory Rate 18 11/14/20 16:37 Blood Pressure 128/64 11/14/20 16:37 O2 Sat by Pulse Oximetry 97 11/14/20 16:37 Pain Scale Pain Intensity 0 - Physical Exam General Appearance: no apparent distress, alert Eye Exam: PERRL/EOMI, eyes nml inspection Ears, Nose, Throat Exam: normal ENT inspection, TMs normal, pharynx normal, moist mucous membranes Neck Exam: normal inspection, non-tender, supple, full range of motion Respiratory Exam: normal breath sounds, lungs clear, No respiratory distress Cardiovascular Exam: regular rate/rhythm, normal heart sounds, normal peripheral pulses Gastrointestinal/Abdomen Exam: soft, normal bowel sounds, No tenderness, No mass Back Exam: normal inspection, normal range of motion, No CVA tenderness, No vertebral tenderness Extremity Exam: normal inspection, normal range of motion, pelvis stable Neurologic Exam: alert, oriented x 3, cooperative, normal mood/affect, nml cerebellar function, nml station & gait, sensation nml, No motor deficits Skin Exam: normal color, warm, dry, No rash Lymphatic Exam: No adenopathy SpO2 Interpretation: normal SpO2: 100 O2 Delivery: Room Air - Course Nursing assessment & vital signs reviewed: Yes EKG Interpreted by Me: RATE, Other (Strictly paced rhythm) - CT Exams Abdomen/Pelvis CT Interpretation: Other (CT scan without contrast of the abdomen pelvis shows no urinary tract stones no nephrosis signs of obstruction etc..) Ordered Tests: Active Orders 24 hr Category Date Time Status EKG-ER Only STAT Care 11/14/20 17:09 Active IV Insertion STAT Care 11/14/20 17:09 Active ABDOMEN AND PELVIS W/0 CONTRAS [CT] Stat Exams 11/14/20 17:10 Taken BMP Stat Lab 11/14/20 19:14 Completed CBC W DIFF Stat Lab 11/14/20 17:21 Completed CMP Stat Lab 11/14/20 17:21 Completed CULTURE,URINE Stat Lab 11/14/20 17:55 Received Lactic Acid Stat Lab 11/14/20 17:16 Completed TROPONIN Q3H Lab 11/14/20 17:21 Completed TROPONIN Q3H Lab 11/14/20 19:14 Received TROPONIN Q3H Lab 11/14/20 23:15 Ordered TROPONIN Q3H Lab 11/15/20 02:15 Ordered TROPONIN Q3H Lab 11/15/20 05:15 Ordered UA W/RFX UR CULTURE Stat Lab 11/14/20 17:55 Completed Medication Summary Discontinued Medications Generic Name Dose Route Start Last Admin Trade Name Freq PRN Reason Stop Dose Admin Sodium Chloride 1,000 mls @ 999 mls/hr 11/14/20 17:09 11/14/20 18:56 Sodium Chloride 0.9% 1000 Ml IV 11/14/20 18:09 Infused .Q1H1M STA Infusion Sodium Chloride Confirm 11/14/20 17:18 Sodium Chloride 0.9% 1000 Ml Administered 11/14/20 17:19 Dose 1,000 mls @ ud .ROUTE .STK-MED ONE Sodium Chloride Confirm 11/14/20 19:00 Sodium Chloride 0.9% 1000 Ml Administered 11/14/20 19:01 Dose 1,000 mls @ ud .ROUTE .STK-MED ONE Lab/Rad Data: Laboratory Result Diagrams 11/14/20 17:21 11/14/20 19:14 Laboratory Results 11/14/20 11/14/20 11/14/20 Range/Units 19:14 17:55 17:21 WBC (4.0-10.5) K/mm3 RBC (4.1-5.4) M/mm3 Hgb (12.0-16.0) gm/dl Hct (35-47) % MCV (78-100) fl MCH (26-32) pg MCHC (32-36) g/dl RDW (11.5-14.0) % Plt Count (150-450) K/mm3 MPV (7.5-11.0) fl Gran % (36.0-66.0) % Eos # (Auto) (0-0.5) Absolute Lymphs (auto) (1.0-4.6) Absolute Monos (auto) (0.0-1.3) Lymphocytes % (24.0-44.0) % Monocytes % (0.0-12.0) % Eosinophils % (0.00-5.0) % Basophils % (0.0-0.4) % Absolute Granulocytes (1.4-6.9) Basophils # (0-0.4) Sodium 140 (137-145) mmol/L Potassium 5.0 (3.5-5.1) mmol/L Chloride 114 H (98-107) mmol/L Carbon Dioxide 18 L (22-30) mmol/L Anion Gap 13.9 (5-15) MEQ/L BUN 76 H (7-17) mg/dL Creatinine 2.73 H (0.52-1.04) mg/dL Estimated GFR 17.7 ML/MIN Glucose 117 H (74-106) mg/dL Lactic Acid (0.4-2.0) Calcium 8.8 (8.4-10.2) mg/dL Total Bilirubin (0.2-1.3) mg/dL AST (14-36) U/L ALT (0-35) U/L Alkaline Phosphatase (38-126) U/L Troponin I < 0.012 (0.000-0.034) ng/mL Serum Total Protein (6.3-8.2) g/dL Albumin (3.5-5.0) g/dL Urine Color YELLOW (YELLOW) Urine Appearance TURBID (CLEAR) Urine pH 5.0 (5-6) Ur Specific [place] 1.014 (1.005-1.025) Urine Protein 100 (Negative) Urine Ketones NEGATIVE (NEGATIVE) Urine Blood NEGATIVE (0-5) Justin/ul Urine Nitrite NEGATIVE (NEGATIVE) Urine Bilirubin NEGATIVE (NEGATIVE) Urine Urobilinogen 2 (0-1) mg/dL Ur Leukocyte Esterase MODERATE (NEGATIVE) Urine WBC (Auto) >100 (0-5) /HPF Urine RBC (Auto) 16-25 (0-2) /HPF U Hyaline Cast (Auto) 26-50 (0-2) /LPF U Epithel Cells (Auto) FEW (FEW) /HPF Urine Bacteria (Auto) MODERATE (NEGATIVE) /HPF Urine Culture Reflexed YES (NO) Urine Glucose NEGATIVE (NEGATIVE) mg/dL 11/14/20 11/14/20 11/14/20 Range/Units 17:21 17:21 17:16 WBC 8.1 (4.0-10.5) K/mm3 RBC 3.54 L (4.1-5.4) M/mm3 Hgb 10.2 L (12.0-16.0) gm/dl Hct 32.1 L (35-47) % MCV 90.7 (78-100) fl MCH 28.8 (26-32) pg MCHC 31.8 L (32-36) g/dl RDW 15.5 H (11.5-14.0) % Plt Count 279 (150-450) K/mm3 MPV 10.4 (7.5-11.0) fl Gran % 59.4 (36.0-66.0) % Eos # (Auto) 0.29 (0-0.5) Absolute Lymphs (auto) 2.33 (1.0-4.6) Absolute Monos (auto) 0.65 (0.0-1.3) Lymphocytes % 28.8 (24.0-44.0) % Monocytes % 8.0 (0.0-12.0) % Eosinophils % 3.6 (0.00-5.0) % Basophils % 0.2 (0.0-0.4) % Absolute Granulocytes 4.80 (1.4-6.9) Basophils # 0.02 (0-0.4) Sodium 138 (137-145) mmol/L Potassium 5.1 (3.5-5.1) mmol/L Chloride 112 H (98-107) mmol/L Carbon Dioxide 17 L (22-30) mmol/L Anion Gap 15.3 H (5-15) MEQ/L BUN 78 H (7-17) mg/dL Creatinine 2.92 H (0.52-1.04) mg/dL Estimated GFR 16.4 ML/MIN Glucose 138 H (74-106) mg/dL Lactic Acid 1.1 (0.4-2.0) Calcium 9.5 (8.4-10.2) mg/dL Total Bilirubin 0.20 (0.2-1.3) mg/dL AST 37 H (14-36) U/L ALT 36 H (0-35) U/L Alkaline Phosphatase 113 (38-126) U/L Troponin I (0.000-0.034) ng/mL Serum Total Protein 7.2 (6.3-8.2) g/dL Albumin 4.2 (3.5-5.0) g/dL Urine Color (YELLOW) Urine Appearance (CLEAR) Urine pH (5-6) Ur Specific [place] (1.005-1.025) Urine Protein (Negative) Urine Ketones (NEGATIVE) Urine Blood (0-5) Justin/ul Urine Nitrite (NEGATIVE) Urine Bilirubin (NEGATIVE) Urine Urobilinogen (0-1) mg/dL Ur Leukocyte Esterase (NEGATIVE) Urine WBC (Auto) (0-5) /HPF Urine RBC (Auto) (0-2) /HPF U Hyaline Cast (Auto) (0-2) /LPF U Epithel Cells (Auto) (FEW) /HPF Urine Bacteria (Auto) (NEGATIVE) /HPF Urine Culture Reflexed (NO) Urine Glucose (NEGATIVE) mg/dL - Progress Progress: unchanged Discussed with : Other (Shanti. Her Javens felt that since she was not fluid overloaded her potassium was normal and she was having no symptoms that she could safely be discharged home to follow-up with Dr. Up on Tuesday) - Departure Departure Disposition: Home Clinical Impression: Acute kidney injury Condition: Stable Critical Care Time: No Referrals: TRENA BAIRD [Primary Care Provider] - Instructions: Kidney Failure (DC) Additional Instructions: Was instructed to stop her lisinopril and not to take any ibuprofen. She was also instructed to avoid citrus or other juices. He was instructed to call Dr. Irby's office Tuesday morning.
[2020-11-14] MEDS ORDERED: ROCEPHIN 1 Gm-D5w 50 ml Bag** 1 G/50 ML IVPB IV ONE (19:35)
[2020-11-14 20:20] VITALS: BP 120/50; PULSE 87
--- NOTE | 2020-11-15 07:38 | XRAY ---
Indication: Abnormal labs. Multiple contiguous axial images obtained through the abdomen and pelvis without contrast as ordered. Comparison: February 27, 2020. Lung bases again demonstrates minimal fibrosis/scarring without infiltrate or effusion. Heart remains enlarged again with cardiac pacer leads and mitral valve replacement. Stable small hiatal hernia. Stomach is distended with food/fluid. Noncontrasted stomach and bowel loops appear nonobstructed. There is again mild diffuse fecal stasis throughout and minimal sigmoid diverticulosis. Stable tiny bilateral renal cysts, appendectomy, cholecystectomy, and hysterectomy. No free fluid/air. Remaining liver, pancreas, spleen, adrenal glands, kidneys, ureters, and bladder appear unremarkable for noncontrast exam. There remains mild scattered aortoiliac calcifications without AAA. Osseous structures intact again with mild osteopenia, mild multilevel thoracolumbar degenerative spondylosis, and minimal grade 1 spondylolisthesis of L4 on L5 on S1. Impression: 1. Again mild diffuse fecal stasis, sigmoid diverticulosis, small hiatal hernia, cardiomegaly, bilateral renal cysts, and chronic bony findings. 2. Remaining CT abdomen/pelvis without contrast exam is negative.
== END 2020-11-14 20:20 | disposition home or self-care (01) ==
LOC: ED 16:28
DX: R79.89 Other specified abnormal findings of blood chemistry (principal); N18.9 Chronic kidney disease, unspecified; I10 Essential (primary) hypertension; E11.9 Type 2 diabetes mellitus without complications; E03.9 Hypothyroidism, unspecified; Z79.01 Long term (current) use of anticoagulants
CPT/HCPCS: 36000; 36415; 74176; 80048; 80053; 81001; 82306; 82607; 82728; 82746; 83540; 83550; 83605; 83735; 84484; 85025; 85027; 87077; 87086; 87186; 93005; 96360; 96361; 99284; J0696

== ENCOUNTER 2023-03-20 07:38 | Emergency (ER) | payer MEDICARE, OTHER ==
[2023-03-20 07:51] LABS: Absolute Neutrophil Ct (ANC) 7.85 x10^3/uL (1.4-6.9); BASOPHIL % 0.3 % (0.0-0.4); Basophil (Absolute #) 0.06 x10^3/uL (0-0.4); Eosinophil (Absolute #) 0 x10^3/uL (0-0.5); Hematocrit 22.9 % (35-47); IMMATURE GRAN # 0.95 x10^3u/L (0.00-0.03); Lymphocyte (Absolute #) 9.51 x10^3/uL (1.0-4.6); Lymphocytes % 49.8 % (24.0-44.0); Mean Corpuscular Hemoglobin 29.8 pg (26-32); Mean Corpuscular Hgb Concent. 28.4 g/dL (32-36); Mean Platelet Volume 11.6 fL (7.5-11.0); Monocyte (Absolute #) 0.72 x10^3/uL (0.0-1.3); Monocytes % 3.8 % (0.0-12.0); NUCLEATED RBC # 0.37 x10^3u/L (0.00-0.01); NUCLEATED RBC % 1.9 % (0.00-0.1); Neutrophil % 41.1 % (36.0-66.0); Platelet Count 95 x10^3/uL (150-450); Red Blood Count 2.18 x10^6/uL (4.1-5.4); Red Cell Distribution Width 14.2 % (11.5-14.0); White Blood Count 19.1 x10^3/uL (4.0-10.5)
[2023-03-20 07:57] LABS: Hemoglobin 6.5 g/dL (12.0-16.0)
[2023-03-20] MEDS ORDERED: EPINEPHRINE ABBOJECT 1 MG/10 ML ONE (08:00)
[2023-03-20] MEDS ORDERED: SODIUM BICARBONATE 50 MEQ/50 ML ABBOJECT IV ONE (08:00)
--- NOTE | 2023-03-20 08:06 | ERPHSYRPT ---
- History of Present Illness Time Seen by Provider: 03/20/23 07:38 Source: EMS Exam Limitations: clinical condition Physician History: 82 years old female with multiple medical problems is brought to the ER by EMS after she took a fall and went into cardiac arrest. She was down for almost 15 minutes before CPR was started. Patient was in V-fib, was shocked multiple t imes, amiodarone/magnesium given in route, was in PEA later, received multiple doses of epi, and bicarb. Patient was PEA on presentation. I-gel was in place. Patient is promptly intubated and ACLS protocol followed. Has multiple rounds of epi and a bicarb, patient has ROSC for few minutes and then last pulse again with a PEA. Downtime is almost an hour and 25 minutes. Has normal spontaneous breathing effort, no cardiac activity, was fixed dilated pupils. Do not think further efforts would be very helpful. No family member available. Aspirin Treatment Today: unknown Allergies/Adverse Reactions: nalidixic acid [From NegGram] Allergy (Severe, Verified 03/20/23 09:35) Hives nitrofurantoin macrocrystalline [From Macrodantin] Allergy (Severe, Verified 03/20/23 09:35) Hives Eyes swelled shut oxytetracycline [From Terramycin] Allergy (Verified 03/20/23 09:35) makes pt go crazy oxytetracycline HCl [From Terramycin] Allergy (Verified 03/20/23 09:35) Nausea and Vomiting codeine [Codeine] Adverse Reaction (Intermediate, Verified 03/20/23 09:35) Pt states it makes her "climb the dasilva" Home Medications: Bupropion HCl Xl 150 mg [Wellbutrin XL 150 MG] 300 mg PO DAILY 01/08/13 [History] Digoxin 0.125 mg Tablet [Lanoxin 0.125MG TABLET] 0.125 mg PO UD 01/08/13 [History] Gabapentin [Neurontin ] 400 mg PO BID 01/08/13 [History] Levothyroxine Sodium 125 Mcg [Synthroid 125 Mcg] 88 mcg PO DAILY 01/08/13 [History] Lorazepam 1 mg [Ativan 1 MG] 0.5 mg PO HS 01/08/13 [History] Metoprolol Tartrate 25 mg [Lopressor 25MG Tab] 25 mg PO BID 10/01/14 [History] Atorvastatin Calcium 20 mg PO DAILY 01/07/18 [History] Insulin Aspart [Novolog Flexpen] 10 units SQ TIDWM 01/07/18 [History] Insulin Glargine,Hum.rec.anlog [Toujeo Solostar] 16 units SQ HS 01/07/18 [History] Polyethylene Glycol 3350 17 gm [Miralax Powder 17GM PACKET] 17 gm PO DAILY 01/07/18 [History] lisinopriL [Lisinopril] 10 mg PO BID 01/07/18 [History] Donepezil HCl 5 mg PO BID 08/24/19 [History] Warfarin Sodium 6 mg PO DAILY 05/16/20 [History] Hx Tetanus, Diphtheria Vaccination/Date Given: No Hx Influenza Vaccination/Date Given: Yes Hx Pneumococcal Vaccination/Date Given: Yes - Review of Systems All Other Systems: Unable due to condition - Past Medical History Pertinent Past Medical History: Yes Neurological History: Stroke ENT History: Cataracts Cardiac History: Arrhythmia, Deep Vein Thrombosis, Hypertension, Other Respiratory History: No Pertinent History Endocrine Medical History: Diabetes Type II, Hypothyroidism Musculoskeletal History: Arthritis GI Medical History: No Pertinent History History: No Pertinent History Psycho-Social History: Anxiety Female Reproductive Disorders: No Pertinent History - Past Surgical History Past Surgical History: Yes Neuro Surgical History: No Pertinent History Cardiac: Pacemaker, Valve Replacement Respiratory: No Pertinent History Gastrointestinal: Appendectomy, Cholecystectomy Genitourinary: No Pertinent History Musculoskeletal: No Pertinent History Female Surgical History: Hysterectomy Other Surgical History: THYROID REMOVED, LEFT CARPAL TUNNEL. cyst ovary. Bladder Surgery 1974 - Social History Smoking Status: Never smoker Exposure to second hand smoke: Yes Alcohol Use: None Drug Use: none Patient Lives Alone: No Significant Family History: no pertinent family hx - Nursing Vital Signs Nursing Vital Signs: Initial Vital Signs Pulse Rate 0 L 03/20/23 07:39 Pain Scale Pain Intensity 0 - Physical Exam General Appearance: other (CPR in progress) Eye Exam: other (Fixed dilated pupils) Ears, Nose, Throat Exam: normal ENT inspection Neck Exam: normal inspection, supple Respiratory Exam: other (No spontaneous breathing effort. Bilateral fairly equal breath sounds with bag ventilation) Cardiovascular Exam: other (No palpable pulses, PEA on the monitor) Extremity Exam: other (Swollen right lower extremity. 2+ pitting edema) Neurologic Exam: other (Abnormal tone.), No associate faculty II-XII nml as tested Skin Exam: pale, other (Bruising on the right flank/right hip area) SpO2 Interpretation: airway management int. O2 Delivery: Ambu-Bag Procedures - Intubation Time of Intubation: 07:45 Intubation Indications: cardiac arrest, respiratory arrest Intubation Method: glidescope Tube Size (cm): 7.5 Endotracheal Tube Confirmation: bilateral breath sounds, good rise & fall of chest Intubation Complications: no complications Performed By: ED Physician Post Intubation Xray: Yes Ordered Tests: Active Orders 24 hr Category Date Time Status CHEST 1 VIEW (PORTABLE) Stat Exams 03/20/23 07:55 Taken CBC W DIFF Stat Lab 03/20/23 07:45 Completed CMP Stat Lab 03/20/23 07:45 Completed Manual Differential NC Stat Lab 03/20/23 07:45 Completed TROPONIN Stat Lab 03/20/23 07:45 Completed Standby STAT RT 03/20/23 08:24 Completed Medication Summary Discontinued Medications Generic Name Dose Route Start Last Admin Trade Name Freq PRN Reason Stop Dose Admin Epinephrine HCl 3 mg 03/20/23 08:00 Epinephrine 1 Mg/10 Ml Abbj 0.1 Mg/Ml Syr .ROUTE 03/20/23 08:01 .STK-MED ONE Sodium Bicarbonate 50 meq 03/20/23 08:00 Sodium Bicarbonate 1 Meq/Ml 50ml Syringe IV 03/20/23 08:01 .STK-MED ONE Lab/Rad Data: Laboratory Result Diagrams 03/20/23 07:45 03/20/23 07:45 Laboratory Results 03/20/23 03/20/23 Range/Units 07:45 07:45 WBC 19.1 H (4.0-10.5) x10^3/uL RBC 2.18 L (4.1-5.4) x10^6/uL Hgb 6.5 L* (12.0-16.0) g/dL Hct 22.9 L (35-47) % MCV 105.0 H (78-100) fL MCH 29.8 (26-32) pg MCHC 28.4 L (32-36) g/dL RDW 14.2 H (11.5-14.0) % Plt Count 95 L (150-450) x10^3/uL MPV 11.6 H (7.5-11.0) fL Gran % 41.1 (36.0-66.0) % Immature Gran % (Auto) 5.0 H (0.00-0.4) % Nucleat RBC Rel Count 1.9 H (0.00-0.1) % Eos # (Auto) 0 (0-0.5) x10^3/uL Immature Gran # (Auto) 0.95 H (0.00-0.03) x10^3u/L Absolute Lymphs (auto) 9.51 H (1.0-4.6) x10^3/uL Absolute Monos (auto) 0.72 (0.0-1.3) x10^3/uL Absolute Nucleated RBC 0.37 H (0.00-0.01) x10^3u/L Lymphocytes % 49.8 H (24.0-44.0) % Monocytes % 3.8 (0.0-12.0) % Eosinophils % 0.0 (0.00-5.0) % Basophils % 0.3 (0.0-0.4) % Absolute Granulocytes 7.85 H (1.4-6.9) x10^3/uL Basophils # 0.06 (0-0.4) x10^3/uL Sodium 141 (137-145) mmol/L Potassium 5.7 H (3.5-5.1) mmol/L Chloride 100 (98-107) mmol/L Carbon Dioxide 10 L* (22-30) mmol/L Anion Gap 38.0 H (5-15) MEQ/L BUN 45 H (7-17) mg/dL Creatinine 3.50 H (0.52-1.04) mg/dL Estimated GFR 13.3 ML/MIN Glucose 325 H (74-106) mg/dL Calcium 10.0 (8.4-10.2) mg/dL Total Bilirubin 0.70 (0.2-1.3) mg/dL AST 823 H (14-36) U/L ALT 714 H (0-35) U/L Alkaline Phosphatase 70 (38-126) U/L Troponin I 1.040 H* (0.000-0.034) ng/mL Serum Total Protein 5.6 L (6.3-8.2) g/dL Albumin 3.3 L (3.5-5.0) g/dL - Progress Progress Note: 03/20/23 08:13 82 years old female with multiple medical problems is brought to the ER by EMS after she took a fall and went into cardiac arrest. She was down for almost 15 minutes before CPR was started. Patient was in V-fib, was shocked multiple times, amiodarone/magnesium given in route, was in PEA later, received multiple doses of epi, and bicarb. Patient was PEA on presentation. I-gel was in place. Patient is promptly intubated and ACLS protocol followed. Has multiple rounds of epi and a bicarb, patient has ROSC for few minutes and then last pulse again with a PEA. Downtime is almost an hour and 25 minutes. Has normal spontaneous breathing effort, no cardiac activity, was fixed dilated pupils. Do not think further efforts would be very helpful. No family member available. Medical Desision Making - Diagnostic Testing Diagnostic test were ordered, analyzed, and reviewed by me: Yes Radiological Interpretation: Interpreted by me, Reviewed by me - Departure Departure Disposition: Clinical Impression: Cardiopulmonary arrest, Fall Condition: Critical Care Time: No Referrals: MICHELLE BOWMAN [Primary Care Provider] - Follow up/PCP as directed
[2023-03-20 08:17] LABS: ALBUMIN 3.3 g/dL (3.5-5.0); BILIRUBIN,TOTAL 0.7 mg/dL (0.2-1.3); Creatinine 1 3.5 mg/dL (0.52-1.04); EST GLOMERULAR FILTRATION RATE 13.3 ML/MIN; Potassium 5.7 mmol/L (3.5-5.1); Total Protein 5.6 g/dL (6.3-8.2)
[2023-03-20 08:20] LABS: TROPONIN 1.04 ng/mL (0.000-0.034)
[2023-03-20 09:38] VITALS: PULSE 0
--- NOTE | 2023-03-22 12:49 | XRAY ---
Indication: Endotracheal tube placement. Comparison: January 14, 2019 Portable chest demonstrates new endotracheal tube tip approximately 1 cm above tuan. Remaining heart and lungs unremarkable again with incidental cardiac valve replacement surgery and left pacemaker. Bony thorax intact.
== END 2023-03-20 10:16 | disposition expired ==
LOC: ED 07:38
DX: I46.9 Cardiac arrest, cause unspecified (principal); W19.XXXA Unspecified fall, initial encounter
CPT/HCPCS: 31500; 36415; 71045; 80053; 84484; 85025; 92950; 93041; 94760; 94799; 96374; 96375; 99285; 99291; 99292; J0171